=== PATIENT | female | born 1940 | race Caucasian/White ===

== ENCOUNTER 2016-05-27 13:46 | Inpatient (IN) ==
--- NOTE | 2016-05-27 13:58 | Emergency Department Note ---
Disposition Clinical Impression: CHF exacerbation, Biliary sludge Disposition: Admitted As Inpatient Condition: Good SOB HPI - General Chief Complaint: ED Shortness of Breath/Dyspnea Stated Complaint: DB Time Seen by Provider: 05/27/16 13:50 Source: patient, EMS Mode of arrival: EMS Limitations: no limitations Nursing Notes Reviewed: Yes Vital Signs Reviewed: Yes - History of Present Illness 76-year-old female presents to the ER via EMS with a chief complaint of shortness of breath and chest pain. Patient reports that she has felt short of breath today. She states that she has CHF and "causing it. She denies any recent weight gain or noncompliance with her medications. She reports to me that she had chest pain earlier today but its gone now. She states she is on home oxygen only at night. She reports a previous history of smoking but quit a few months ago. She is unable to tell me her medical problems. There is no one here with her to validate that. She denies any recent illnesses, fevers, vomiting, diarrhea. No other complaints. Pt Subjective Complaint: shortness of breath Onset (ago): hour(s) Severity: moderate Consistency/Duration: constant Improves with: nothing Worsens with: nothing Known history of: congestive heart failure Associated symptoms: Reports: chest pain. Denies: fever, cough, lower extremity pain, nausea/vomiting Treatment prior to arrival: oxygen Cough present: No Sputum production: No Sputum Amount: None - Related Data Home oxygen amount: other (5L at night) Home Medications Medication Instructions Recorded Confirmed Amiodarone [Cordarone] 200 mg PO QAM 05/27/16 05/27/16 Aspirin Enteric Coated [Aspirin EC] 81 mg PO DAILY 05/27/16 05/27/16 Atorvastatin [Lipitor] 40 mg PO HS 05/27/16 05/27/16 Furosemide [Lasix] 20 mg PO DAILY 05/27/16 05/27/16 GlipiZIDE [Glucotrol] 5 mg PO QAM 05/27/16 05/27/16 Lisinopril 2.5 mg PO DAILY 05/27/16 05/27/16 Metformin HCl [Glucophage] 1,500 mg PO QAM 05/27/16 05/27/16 Metoprolol XL (24 HR) Succ [Toprol 25 mg PO DAILY 05/27/16 05/27/16 XL] Potassium Chloride [Klor-Con 10] 10 meq PO BID 05/27/16 05/27/16 Tramadol HCl [Ultram] 50 mg PO Q6H PRN 05/27/16 05/27/16 Warfarin [Coumadin] 4 mg PO 1800 05/27/16 05/27/16 Allergies Allergy/AdvReac Type Severity Reaction Status Date / Time Penicillins Allergy Rash Verified 05/27/16 13:49 All systems ED: reviewed and negative except as stated. Constitutional: Denies: fever Cardiovascular: Reports: chest pain. Denies: palpitations Respiratory: Reports: dyspnea. Denies: cough, wheezes Gastrointestinal: Denies: abdominal pain, nausea, vomiting, diarrhea Musculoskeletal: Denies: back pain, neck pain Past Medical History - Past Medical History Attestation: Yes The following information was validated with the patient. Source: patient Physical Exam - General Limitations: no limitations General appearance: alert, in no apparent distress - Head Head exam: atraumatic, normocephalic, normal inspection - Eye Eye exam: Present: normal appearance, EOMI - ENT ENT exam: normal exam - Neck Neck exam: Present: normal inspection - Chest Chest inspection: Present: normal inspection, symmetric chest wall rise - Respiratory Respiratory exam: Present: accessory muscle use, other (Diminished breath sounds bilaterally). Absent: respiratory distress, wheezes, prolonged expiratory phase - Cardiovascular Cardiovascular exam: Present: regular rate, normal rhythm, normal heart sounds, systolic murmur (2/6) - Abdominal Exam Abdominal exam: Present: soft, Non-Tender. Absent: tenderness - Expanded Lower Extremity Exam Hip/Pelvis exam: Present: normal inspection, full ROM Upper leg exam: Present: normal inspection, full ROM Knee exam: Present: normal inspection, full ROM Lower leg exam: Present: normal inspection, full ROM, swelling (BLE non-pitting edema with superficial skin changes likely 2/2 venous insufficiency.) Ankle exam: Present: normal inspection, full ROM Foot/toe exam: Present: normal inspection, full ROM - Neurological Exam Neurological exam: Present: alert - Psychiatric Psychiatric exam: Present: normal affect, normal mood - Skin Skin exam: Present: warm, dry, intact, normal color Course Course Narrative: Patient seen and examined. Vital signs reviewed. Reports that she was hypoxic upon presentation by EMS in the 80s. Corrected when placed on 2 L nasal cannula. Plan for patient is EKG, chest x-ray as well as basic labs including troponin and BNP. I reviewed medical records which does not show any medical problems or medications in our system. The paperwork sent with the patient reveals that she is on Coumadin, metoprolol, amiodarone, furosemide, atorvastatin, escitalopram. - Reevaluation(s) Reevaluation #1: Chest x-ray shows pulmonary vascular congestion with a right-sided effusion. Patient given 40 of Lasix here IV. BNP over 1999. We will admit to the hospital for CHF exacerbation. Vital Signs Temperature 98.7 F 05/27/16 13:50 Pulse Rate 87 05/27/16 13:50 Respiratory Rate 22 05/27/16 13:50 Blood Pressure 149/79 05/27/16 13:50 O2 Sat by Pulse Oximetry 85 L 05/27/16 13:50 Temperature 98.7 F 05/27/16 13:50 Pulse Rate 79 05/27/16 16:28 Respiratory Rate 18 05/27/16 17:13 Blood Pressure 144/85 05/27/16 17:13 O2 Sat by Pulse Oximetry 95 05/27/16 16:28 Oxygen Delivery Oxygen Delivery Nasal Cannula Shortness of Breath/Dyspnea - MDM Narrative Medical decision making narrative: 76-year-old female presents to the ER via EMS due to shortness of breath. Her EKG here shows sinus rhythm with a right bundle branch block. Troponin is 0.03. Her chest x-ray is concerning for pulmonary vascular congestion with a right sided effusion. Her BNP is over 2000. Her d-dimer is within normal limits for age adjustment. Patient given an aspirin and 40 of Lasix. Patient will be admitted to the hospitalist service for further management. - Lab Data Result diagrams: 05/27/16 14:22 05/27/16 14:22 Lab Results 05/27/16 05/27/16 05/27/16 Range/Units 14:22 14:22 14:22 WBC 8.5 (4.3-11.1) K/mcL RBC 3.74 L (3.82-4.97) M/mcL Hgb 11.0 L (11.5-15.4) g/dL Hct 36.8 (35.3-44.9) % MCV 98.4 (83.0-100.0) fL MCH 29.4 (28.0-33.3) pg MCHC 29.9 L (31.6-35.5) g/dL RDW 19.1 H (11.5-14.5) % Plt Count 266 (140-400) K/mcL MPV 8.7 L (9.4-12.4) fL Immature Gran % 0.4 (0-4) % Seg Neutrophils % 61.4 % Lymphocytes % 23.6 % Monocytes % 8.1 % Eosinophils % 6.1 % Basophils % 0.4 % Neutrophils # 5.2 (1.6-8.9) K/mcL Lymphocytes # 2.0 (0.6-4.6) K/mcL Monocytes # 0.7 (0.0-1.3) K/mcL Eosinophils # 0.5 (0.0-0.6) K/mcL Basophils # 0.0 (0.0-0.2) K/mcL PT (9.4-12.1) Seconds INR APTT (26.0-36.0) Seconds D-Dimer (0-500) ng/mLFEU Sodium 141 (136-145) mEq/L Potassium 5.1 H (3.5-4.5) mEq/L Chloride 108 (98-109) mEq/L Carbon Dioxide 25 (19-29) mEq/L BUN 42 H (7-20) mg/dL Creatinine 1.12 H (0.57-1.11) mg/dL Est GFR ( Amer) 58 L (> 60) Est GFR (Non-Af Amer) 48 L (> 60) BUN/Creatinine Ratio 38 H (6-26) Glucose 104 H (70-99) mg/dL Calculated Osmolality 303 H (280-300) Calcium 9.1 (8.6-10.8) mg/dL Troponin I 0.03 (0-0.03) ng/mL B-Natriuretic Peptide (0-100) pg/mL 05/27/16 05/27/16 05/27/16 Range/Units 14:22 14:22 14:22 WBC (4.3-11.1) K/mcL RBC (3.82-4.97) M/mcL Hgb (11.5-15.4) g/dL Hct (35.3-44.9) % MCV (83.0-100.0) fL MCH (28.0-33.3) pg MCHC (31.6-35.5) g/dL RDW (11.5-14.5) % Plt Count (140-400) K/mcL MPV (9.4-12.4) fL Immature Gran % (0-4) % Seg Neutrophils % % Lymphocytes % % Monocytes % % Eosinophils % % Basophils % % Neutrophils # (1.6-8.9) K/mcL Lymphocytes # (0.6-4.6) K/mcL Monocytes # (0.0-1.3) K/mcL Eosinophils # (0.0-0.6) K/mcL Basophils # (0.0-0.2) K/mcL PT 47.8 H* (9.4-12.1) Seconds INR 4.2 APTT 49.8 H (26.0-36.0) Seconds D-Dimer 694 H (0-500) ng/mLFEU Sodium (136-145) mEq/L Potassium (3.5-4.5) mEq/L Chloride (98-109) mEq/L Carbon Dioxide (19-29) mEq/L BUN (7-20) mg/dL Creatinine (0.57-1.11) mg/dL Est GFR ( Amer) (> 60) Est GFR (Non-Af Amer) (> 60) BUN/Creatinine Ratio (6-26) Glucose (70-99) mg/dL Calculated Osmolality (280-300) Calcium (8.6-10.8) mg/dL Troponin I (0-0.03) ng/mL B-Natriuretic Peptide 2026 H (0-100) pg/mL - Radiology Data Radiology results reviewed: Yes I reviewed the patient's radiology results. Chest X-Ray 05/27/16 13:54 IMPRESSION: Cardiomegaly with central vascular congestion and probable early perihilar congestive changes. Mild dependent right basilar opacification and effusion. D/ / Benito Trevino MD / Benito Trevino MD Interpreting Provider: Benito Trevino MD - EKG Data EKG attestation: Yes I reviewed and interpreted this EKG. EKG results narrative: EKG demonstrates normal sinus rhythm with a right bundle-branch block with a rate of 89 bpm. Left axis deviation. PA interval 155 QRS duration 155 QTc 437 T wave inversions in lead V1, V2 secondary to bundle-branch block. No ST elevations or depressions. No previous EKG for comparison. EKG shows normal: Reports: sinus rhythm Rate: Reports: normal Rhythm: Reports: NSR, other (RBBB) Crawford/QRS: Reports: RBBB T wave inversions noted in: Reports: v1, v2 When compared to previous EKG there are: previous EKG unavailable Interpretation: Reports: other (NSR with RBBB) S.B.Laureano - Cindy Situation: Demographics, MOA Background: Presenting Complaint, Relevant PMH, Meds, & Allergies Assessment: Vital Signs, Course and respsone to treatment, Exam Concerns, Patient/Family Expectation, Pertinant Lab Results, Outstanding Labs Recommendation: Barrier(s) to disposition, Recommendation based on pending studies, treatments, or consults STravis Report Given to: Dr. Lizeth White Repor Time: 14:57 (Requests CT abd pelv) Attestation Statement - Attestation Attestation: I examined this patient and my medical decision-making was reviewed with the CHILD CARE LEAD TEACHER/PA/Advanced Practice Nurse/Resident Physician. I agree with the documented findings, disposition and treatment plan as described except to the extent set forth below. Patient to the emergency department with a chief complaint hypoxia. Patient sent in by her home health aid. Pulse ox was in the 80s on room air. Patient does not wear home oxygen. She states she had some chest pain earlier but feels fine now. On exam she is awake and alert. She is satting 92% on 4 L. Lungs diminished in the bases. Plan. The patient hypoxic on room air. She is tolerating oxygen at 4 L. Patient with cardiomegaly and vascular congestion on her chest x-ray. Lasix given. Will admit to medicine. 30 minutes of critical care exclusive of separately procedures. Patient admitted. They wanted a CT scan abdomen. It shows sludge in gallbladder. Hospitalist requesting ultrasound. Patient is nothing by mouth and admitted to medicine. Ultrasound pending at this time.
[2016-05-27] MEDS ORDERED: Aspirin 81 MG TAB.CHEW PO ONE (14:07)
[2016-05-27 14:33] LABS: Basophils % 0.4 %; Eosinophils # 0.5 K/mcL (0.0-0.6); Eosinophils % 6.1 %; Hematocrit 36.8 % (35.3-44.9); Immature Granulocytes % 0.4 % (0-4); Lymphocytes % 23.6 %; Mean Corpuscular HGB Conc 29.9 g/dL (31.6-35.5); Mean Corpuscular Hemoglobin 29.4 pg (28.0-33.3); Mean Corpuscular Volume 98.4 fL (83.0-100.0); Mean Platelet Volume 8.7 fL (9.4-12.4); Monocytes # 0.7 K/mcL (0.0-1.3); Monocytes % 8.1 %; Neutrophils # 5.2 K/mcL (1.6-8.9); Platelet Count 266 K/mcL (140-400); Red Blood Count 3.74 M/mcL (3.82-4.97); Red Cell Distribution Width 19.1 % (11.5-14.5); Segmented Neutrophils % 61.4 %
[2016-05-27] MEDS ORDERED: Furosemide 40 MG/4 ML VIAL IV ONE (14:39)
[2016-05-27 14:40] LABS: INR 4.2
[2016-05-27 14:43] LABS: Activated Partial Thrombo Time 49.8 Seconds (26.0-36.0)
[2016-05-27 14:45] LABS: Calcium 9.1 mg/dL (8.6-10.8); Potassium 5.1 mEq/L (3.5-4.5)
[2016-05-27 14:48] LABS: Prothrombin Time 47.8 Seconds (9.4-12.1)
[2016-05-27] MEDS ORDERED: Ondansetron 4 MG/2 ML VIAL IVP PRN (17:50)
[2016-05-27] MEDS ORDERED: Naloxone 0.4 MG/ML INJ IVP PRN (17:50)
[2016-05-27] MEDS ORDERED: Acetaminophen 325 MG TABLET PO PRN (17:50)
--- NOTE | 2016-05-27 17:56 | Internal Med History&Physical ---
Date of Encounter: 05/27/16 Time of Encounter: 17:54 Assessment and Plan (1) Biliary sludge Current visit: Yes Status: Acute Patient noted to have right upper quadrant abdominal pain, CT abdomen/pelvis shows gallbladder sludge. To rule out acute cholecystitis. Check hepatic function panel and obtain ultrasound gallbladder to check for gallstones. Keep nothing by mouth for now. (2) Acute CHF Current visit: Yes Status: Acute Patient is noted to have elevated BNP, pedal edema and hypoxia. Avoid IV hydration and start diuresis with IV Lasix. Fluid restriction, daily weights and strict urine output monitoring. Continue beta jens. Telemetry monitoring with serial troponin trending. Check 2-D echocardiogram. Obtain medical records from recent hospitalization from [place], [place]. Physical therapy evaluation. CODE STATUS discussed with patient and family, patient confirms DNR/DNI, medical power of instructional design specialist's and her daughter and son-in-law. Qualifiers: Congestive heart failure type: unspecified congestive heart failure type Qualified Code(s): I50.9 - Heart failure, unspecified (3) Acute on chronic respiratory failure with hypoxemia Current visit: Yes Status: Acute Noted to be on 2 L/m oxygen via nasal cannula at home. Oxygen requirements are currently higher due to underlying CHF exacerbation. Treat underlying condition and monitor closely. (4) Acute encephalopathy Current visit: Yes Status: Acute Improving. Likely related to metabolic encephalopathy due to hypoxia and underlying medical conditions. Supportive care and fall precautions. (5) Diabetes mellitus Current visit: Yes Status: Chronic Accu-Chek blood glucose monitoring with sliding scale insulin as needed. Qualifiers: Diabetes mellitus type: type 2 Diabetes mellitus complication status: with unspecified complications Diabetes mellitus hydrographer insulin use: without hydrographer use Qualified Code(s): E11.8 - Type 2 diabetes mellitus with unspecified complications (6) Atrial fibrillation Current visit: Yes Status: Chronic Currently rate controlled. Continue beta jens. Noted to be on Coumadin for long-term anticoagulation, will hold for now due to elevated INR. Qualifiers: Atrial fibrillation type: chronic Qualified Code(s): I48.2 - Chronic atrial fibrillation (7) Osteoarthritis Current visit: Yes Status: Chronic Qualifiers: Osteoarthritis location: multiple joints Osteoarthritis type: primary Qualified Code(s): M15.0 - Primary generalized (osteo)arthritis Internal Medicine - H&P: HPI Chief complaint: Dizziness, SOB, confusion Admitted From: Emergency Dept Plans for Post Hospital Care: Transfer Jail Facility History of present illness: Ms. Black is a 76 year old female with history of CHF and atrial fibrillation was brought in for evaluation of confusion and lethargy. Patient has home health services including physical therapy and has been working with physical therapy this morning when she started getting weak and not answering appropriately. She is currently alert and oriented and history is also supplemented by her daughter and son-in-law at bedside. Patient has recently been hospitalized in [place], [place] with similar complaints and has been diagnosed with congestive heart failure and was discharged to rehabilitation facility from where she came home on home health services. She reports right-sided lower rib pain and right upper abdominal pain just below her rib cage, not associated with nausea or vomiting or diarrhea. Her pain is worsened with inspiration. No history of gallbladder disease or cholecystectomy. She does not report chest pain today although she does have shortness of breath and some leg swelling, which has not gotten any worse. She is noted to be on home oxygen. No cough, fever, chills or palpitations. Past Med Surg Social Fam HX - Past Medical History Medical history: atrial fibrillation, CHF, diabetes - Past Surgical History Surgical History: - Social History Smoking Status: Former smoker (quit 2 months ago) Alcohol use: none Drug use: none Occupational status: retired Current living situation: Home, With Family Activity Level: Uses cane/walker Recent Out of Country Travel Within the Last 8 Weeks: No Exposure or Possible Exposure to Illness During Travel: No - Additional Family History Additional family history: reviewed and found non-contributory Internal Medicine - H&P: Meds Amiodarone [Cordarone] 200 mg PO [facility] 05/27/16 [History] Aspirin Enteric Coated [Aspirin EC] 81 mg PO DAILY 05/27/16 [History] Atorvastatin [Lipitor] 40 mg PO HS 05/27/16 [History] Furosemide [Lasix] 20 mg PO DAILY 05/27/16 [History] GlipiZIDE [Glucotrol] 5 mg PO QAM 05/27/16 [History] Lisinopril 2.5 mg PO DAILY 05/27/16 [History] Metformin HCl [Glucophage] 1,500 mg PO QA 05/27/16 [History] Metoprolol XL (24 HR) Succ [Toprol XL] 25 mg PO DAILY 05/27/16 [History] Potassium Chloride [Klor-Con 10] 10 meq PO BID 05/27/16 [History] Tramadol HCl [Ultram] 50 mg PO Q6H PRN 05/27/16 [History] Warfarin [Coumadin] 4 mg PO 1800 05/27/16 [History] Allergies Penicillins Allergy (Verified 05/27/16 13:49) Rash All Systems PM: A 10-system review of systems was performed and is negative for pertinent findings except as documented above in the HPI. - Constitutional Constitutional: fatigue, lethargy, weakness - EENT Eyes: no change in vision, no discharge, no pain, no photophobia Ears: no ear discharge, no ear pain, no tinnitus Nose, mouth and throat: no dysphagia, no nasal discharge, no neck pain, no sore throat - Cardiovascular Cardiovascular ROS IM: dyspnea on exertion, edema - Respiratory Respiratory: dyspnea on exertion - Gastrointestinal Gastrointestinal: abdominal pain, no diarrhea, no hematemesis, no hematochezia, no melena, no nausea, no vomiting - Genitourinary Genitourinary: no change in urinary stream, no dysuria, no flank pain, no hematuria - Musculoskeletal Musculoskeletal ROS IM: no numbness, no tingling - Integumentary Integumentary IM: no rash, no unusual bruising - Neurological Neurological ROS: no confusion, no convulsions, no focal weakness, no numbness, no tingling, no tremor(s) - Hematologic/Lymphatic Hematologic/Lymphatic: no easy bruising - Constitutional Vitals: Temp Pulse Resp BP Pulse Ox 98.7 F 79 18 144/85 95 05/27/16 13:50 05/27/16 16:28 05/27/16 17:13 05/27/16 17:13 05/27/16 16:28 General appearance: Present: A&O X 3, answers questions appropriately - Head Head exam: Present: atraumatic, normocephalic - Neck Neck exam general surgery: Present: supple, trachea midline. Absent: lymphadenopathy - Respiratory Respiratory exam: Present: rales (bibasal crackles+). Absent: accessory muscle use, rhonchi, wheezes - Cardiovascular Cardiovascular exam: Present: irregular rhythm, +S1, +S2. Absent: diastolic murmur, gallop, rubs, systolic murmur - GI/Abdominal GI/Abdominal exam: Present: normal bowel sounds, soft (mild tenderness in RUQ), no peritoneal signs. Absent: distended, tenderness - Extremities Exam Extremities exam: Present: full ROM, pedal edema, warm, radial pulses palpable and symetrical. Absent: calf tenderness, cyanotic - Neurological Exam Neurological exam: Present: CN II-XII intact, oriented X3, no focal deficits. Absent: pronater drift, facial droop, speech deficit - Skin Skin exam: Present: dry, intact Internal Med - H&P Results - Labs CBC & Chem 7: 05/28/16 01:19 05/30/16 00:53
[2016-05-27 18:05] LABS: Albumin 3.2 g/dL (3.5-5.0); Albumin/Globulin Ratio 0.8 (1.1-2.2); Bilirubin,Direct 0.2 mg/dL (0.0-0.5); Bilirubin,Indirect 0.1 mg/dL (0.0-1.2); Bilirubin,Total 0.3 mg/dL (0.2-1.2); Globulin 3.8 g/dL (2.4-3.5)
[2016-05-28] MEDS: *HR* OxyCODONE Immed Rel 5 MG TABLET PO PRN ×4 (00:18→23:39)
[2016-05-28] MEDS ORDERED: *HR* Dextrose 50 % in Water (Syg) 50 ML SYRINGE ONE (00:26)
[2016-05-28] MEDS: *HR* Dextrose 50 % in Water (Syg) 50 ML SYRINGE IVP PRN ×2 (00:30→05:52)
[2016-05-28] MEDS ORDERED: D5% in Water 1,000 ML IV PRN (01:01)
[2016-05-28] MEDS ORDERED: Dextrose Gel 15 GM PO PRN ×2 (01:01)
[2016-05-28 01:43] LABS: Basophils # 0.1 K/mcL (0.0-0.2); Basophils % 0.6 %; Eosinophils # 0.6 K/mcL (0.0-0.6); Eosinophils % 6.6 %; Hematocrit 34.9 % (35.3-44.9); Hemoglobin 10.3 g/dL (11.5-15.4); Immature Granulocytes % 0.4 % (0-4); Lymphocytes # 2.3 K/mcL (0.6-4.6); Lymphocytes % 27.7 %; Mean Corpuscular HGB Conc 29.5 g/dL (31.6-35.5); Mean Corpuscular Hemoglobin 28.9 pg (28.0-33.3); Mean Platelet Volume 9.1 fL (9.4-12.4); Monocytes # 0.7 K/mcL (0.0-1.3); Monocytes % 8.1 %; Neutrophils # 4.8 K/mcL (1.6-8.9); Platelet Count 255 K/mcL (140-400); Red Blood Count 3.56 M/mcL (3.82-4.97); Red Cell Distribution Width 18.8 % (11.5-14.5); Segmented Neutrophils % 56.6 %
[2016-05-28 01:57] LABS: Calcium 8.9 mg/dL (8.6-10.8); Chol/HDL Ratio 3.2 (0-4.9); Magnesium 1.6 mg/dL (1.6-2.6); Potassium 4.5 mEq/L (3.5-4.5)
[2016-05-28] MEDS: Metoprolol XL (24 HR) Succ 25 MG TAB.ER.24H PO SCH (10:50)
[2016-05-28] MEDS: Furosemide 20 MG/2 ML VIAL IVP SCH ×2 (10:50→17:13)
[2016-05-28] MEDS: Pantoprazole 40 MG VIAL IVP SCH (10:51)
[2016-05-28] MEDS: *HR* Amiodarone 200 MG TABLET PO SCH (10:51)
[2016-05-28] MEDS: Aspirin Enteric Coated 81 MG Tablet PO SCH (10:51)
--- NOTE | 2016-05-28 13:50 | ECHO - Doppler Report ---
Echocardiogram Name: Shanda Black Date of Study: 05/28/2016 Date: 1940 Ht: 61.0 in Medical Record#: [id number] Age: 76 Wt: 206.0 lb Gender: Female BSA: 1.91 Order #: [id number] Location: [facility] Room #: [id number] Reading Physician: Carlton Kessler DO, FACC, RYAN QUAN Reproductive Surgeon: ALEXA JimenezT, RD Ordering Physician: Kathy Yi MD Primary Physician: None Indications: Shortness of breath Impressions: LVEF 60%. Normal LV chamber size and function. Mild concentric left ventricular hypertrophy. Mild left ventricular diastolic dysfunction. Atypical septal motion consistent with bundle branch block. Normal right ventricular structure and function. Severely dilated left atrium. Severely calcified aortic valve leaflets. Severe mitral annular calcification and severely thickened MV leaflets with reduced mobility. Mild mitral regurgitation. Moderate aortic stenosis. Mean gradient 29 mmHg. Peak velocity 3.48 m/s. Severe mitral stenosis. Mean gradient 11 mmHg (HR 80 bpm). Mild tricuspid regurgitation. Moderate pulmonary hypertension. Estimated RVSP is 52 mmHg. Left Ventricular Wall Motion: Rest Echo Findings All wall segments showed normal motion. Findings: Study Quality * Technically adequate exam. ECG Findings * Sinus rhythm with BBB. Left Ventricle * LVEF 60%. * Normal LV chamber size and function. * Mild concentric left ventricular hypertrophy. * Mild left ventricular diastolic dysfunction. * Atypical septal motion consistent with bundle branch block. Right Ventricle * Grossly normal right ventricular structure and function. Left Atrium * Severely dilated left atrium. Right Atrium * Mildly dilated right atrium. Interatrial Septum * Interatrial septum not well evaluated. Aortic Valve * Severely calcified aortic valve leaflets. * Trace aortic regurgitation. * Moderate aortic stenosis. Mean gradient 29 mmHg. Peak velocity 3.48 m/s. Mitral Valve * Severe mitral annular calcification and severely thickened MV leaflets with reduced mobility. * Mild mitral regurgitation. * Severe mitral stenosis. Mean gradient 11 mmHg (HR 80 bpm). Tricuspid Valve * Normal tricuspid valve structure. * Mild tricuspid regurgitation. * Moderate pulmonary hypertension. * Estimated RVSP is 52 mmHg. * Estimated RA pressure is 5 mmHg. Pulmonic Valve * Normal pulmonic valve structure and function. * Trace pulmonic regurgitation. Aorta * Normally sized aortic root. Pericardium * The pericardium appears normal. IVC * The IVC is not well evaluated. Pulmonary Artery * Normal visualized portions of the main pulmonary artery. History Diabetes Congestive Heart Failure Measurements: BP: 130/ 72 2D Normal Values IVSd: 1.10 cm 0.6 - 1.0 cm LVIDd: 5.20 cm 3.7 - 5.6 cm LVPWd: 1.10 cm 0.6 - 1.1 cm LVIDs: 3.60 cm 1.5 - 3.6 cm AO: 2.80 cm < 4.0 cm LA: 5.00 cm 2.0 - 4.0cm %FS: 30.80 cm >25 % LVOT Diam: 1.90 cm LA volume: 65 Mitral Valve Peak Velocity 2.19 m/sec Mean Velocity:1.57 m/sec Peak Grad:19.00 mmHg Mean Grad:11.00 mmHg Pressure Time:121.00 msec Dec Time:236.00 msec Valve Area:.95 cm2 Peak E:1.84 m/sec Peak A:2.07 m/sec E/A Ratio:0.9 Peak E' Lat Ramo:5.07 cm/s Peak E' Med Ramo:4 cm/s E/E' Lat Ratio:36.3 E/E' Med Ratio:46 LVOT Peak Ramo:.88 m/sec Mean Ramo:.61 m/sec Peak Grad:3.00 mmHg Mean Grad:2.00 mmHg Aortic Valve Peak Ramo:3.48 m/sec Mean Ramo:2.53 m/sec Peak Grad:48.00 mmHg Mean Grad:29.00 mmHg Valve Area:.85 cm2 AI pressure Half-time: 368.00 msec Tricuspid Valve TV Regurg Peak Grad: 47.00mmHg TV Regurg Peak Ramo: 3.41m/sec Updated by Carlton Kessler DO, FACReyna, AVELINA, RYAN on 05/28/2016 1:44:32 PM electronically signed on 05/28/2016 1:45:02 PM with status of Final Wall Motion Govea: 1=Normal, 2=Hypokinesis, 3=Akinesis, 4=Dyskinesis, 5=Aneurysmal, 6=Hyperkinetic, X=Not Visualized (Blank)=Missing
[2016-05-28 14:23] LABS: Bilirubin,Urine Negative (Negative); Blood,Urine Small (Negative); Clarity,Urine Clear (Clear); Color,Urine Yellow (Yellow); Glucose,Urine (UA) Normal (Normal); Ketones,Urine Negative (Negative); Leukocyte Esterase,Urine Negative (Negative); Nitrite,Urine Negative (Negative); Protein,Urine Negative (Neg-Trace); Urobilinogen,Urine Normal (Normal)
[2016-05-28 14:27] LABS: Bacteria,Urine None Seen per hpf (None-Few); Hyaline Casts,Urine None Seen per lpf (None-Few); RBC,Urine 0-3 per hpf (0-3); Squamous Epithelial Cell,Urine Few per lpf (None-Few); WBC,Urine 0-3 per hpf (0-3)
[2016-05-28 14:55] LABS: INR 4.1
[2016-05-28 15:00] LABS: Prothrombin Time 46.2 Seconds (9.4-12.1)
--- NOTE | 2016-05-28 15:36 | Internal Med Progress Note ---
Date of Encounter: 05/28/16 Time of Encounter: 12:00 - Assessment and plan (1) Acute CHF Current Visit: Yes Status: Acute Assessment and plan: improving clinically. Continue IV Lasix while monitoring urine output, weights and serum creatinine. Fluid restriction. Cardiac diet. Continue beta jens. Supportive care and supplemental oxygen. 2-D echocardiogram reviewed , shows ejection fraction 60%, mild left ventricular diastolic dysfunction, severe mitral stenosis, moderate aortic stenosis and pulmonary hypertension. We will try to obtain previous records from the hospital in [place], where this patient was recently hospitalized and has been diagnosed with CHF. Physical therapy evaluation pending. Qualifiers: Congestive heart failure type: diastolic Qualified Code(s): I50.31 - Acute diastolic (congestive) heart failure (2) Acute encephalopathy Current Visit: Yes Status: Resolved Assessment and plan: Likely due to hypoxemia related to valvular heart disease. Currently at baseline mental status. (3) Diabetes mellitus Current Visit: Yes Status: Chronic Assessment and plan: Noted to have episodes of hypoglycemia yesterday. Continue Accu-Chek blood glucose monitoring with sliding scale insulin as needed. Diabetic diet. Check hemoglobin A1c. Qualifiers: Diabetes mellitus type: type 2 Diabetes mellitus complication status: with unspecified complications Diabetes mellitus chcf insulin use: without chcf use Qualified Code(s): E11.8 - Type 2 diabetes mellitus with unspecified complications (4) Atrial fibrillation Current Visit: Yes Status: Chronic Assessment and plan: Try to obtain previous records. Continue beta jens and amiodarone. Currently rate controlled. Noted to be on long-term anticoagulation with Coumadin, currently on hold due to high INR. Telemetry monitoring. Qualifiers: Atrial fibrillation type: chronic Qualified Code(s): I48.2 - Chronic atrial fibrillation (5) Osteoarthritis Current Visit: Yes Status: Chronic Qualifiers: Osteoarthritis location: multiple joints Osteoarthritis type: primary Qualified Code(s): M15.0 - Primary generalized (osteo)arthritis (6) Biliary sludge Current Visit: Yes Status: Acute Assessment and plan: Reviewed gallbladder ultrasound, shows no evidence of gallstones or acute cholecystitis. Patient is able to tolerate oral diet. Does not appear septic. LFTs noted to be WNL. (7) Mitral stenosis Current Visit: Yes Status: Chronic Qualifiers: Cardiac valve disease etiology: etiology unspecified Qualified Code(s): I05.0 - Rheumatic mitral stenosis - Subjective Interval history: Feels better; no chest pain but still has some right-sided pain below ribs; tolerates oral diet; improved dyspnea and confusion; - Constitutional Vitals: Temp Pulse Resp BP Pulse Ox 98.2 F 84 20 122/91 99 05/28/16 12:53 05/28/16 12:53 05/28/16 12:53 05/28/16 12:53 05/28/16 12:53 General appearance: Present: A&O X 2, answers questions appropriately - Respiratory Respiratory exam: Present: rales (faint crackles B/L bases). Absent: accessory muscle use, rhonchi, wheezes - Cardiovascular Cardiovascular exam: Present: RRR, +S1, +S2, systolic murmur (3/6 left lower parasternal area). Absent: diastolic murmur, gallop, rubs - GI/Abdominal GI/Abdominal exam: Present: normal bowel sounds, soft, no peritoneal signs. Absent: distended, tenderness - Extremities Exam Extremities exam: Present: full ROM, pedal edema (improving), warm, radial pulses palpable and symetrical. Absent: calf tenderness, cyanotic Internal Medicine: Result - Labs CBC & Chem 7: 05/28/16 01:19 05/28/16 01:19 Labs: Short CBC 05/28/16 Range/Units 01:19 WBC 8.4 (4.3-11.1) K/mcL Hgb 10.3 L (11.5-15.4) g/dL Hct 34.9 L (35.3-44.9) % Plt Count 255 (140-400) K/mcL Neutrophils # 4.8 (1.6-8.9) K/mcL BMP 05/28/16 01:19 Sodium 144 Potassium 4.5 Chloride 108 Carbon Dioxide 28 BUN 40 H Creatinine 1.12 H Glucose 77 Calcium 8.9 Cardiac Enzymes 05/27/16 05/28/16 05/28/16 Range/Units 20:20 01:19 05:51 Troponin I 0.02 0.03 0.03 (0-0.03) ng/mL Urine 05/28/16 Range/Units 14:10 Urine Color Yellow (Yellow) Urine Clarity Clear (Clear) Urine pH 6.0 (5.0-8.0) pH Units Ur Specific [place] 1.010 (1.010-1.025) Urine Protein Negative (Neg-Trace) mg/dL Urine Glucose (UA) Normal (Normal) mg/dL - ABG Interpretation ABG results: PT/INR, D-dimer PT 46.2 Seconds (9.4-12.1) H* 05/28/16 14:38 D-Dimer 694 ng/mLFEU (0-500) H 05/27/16 14:22 Consult Discharge Plan - Plan Referrals: NO,PCP [Primary Care Provider] -
--- NOTE | 2016-05-28 17:10 | Electrocardiograph Report ---
[place] [id number] Test Date: 2016-05-27 Pat Name: Shanda Black Department: 104 Room: [id number] Gender: F [employer] Tender: : 1940 Requested By: Hossein Alarcon Order Number: [id number] Reading MD: Marifer Petty Measurements Intervals [place] Rate: 89 P: -2 [place]: 155 QRS: -56 QRSD: 155 T: 10 QT: 391 QTc: 437 Interpretive Statements SINUS RHYTHM POSSIBLE LEFT ATRIAL ENLARGEMENT MARKED LEFT AXIS DEVIATION RIGHT BUNDLE BRANCH BLOCK Electronically Signed On 05-28-2016 17:08:56 EST by Marifer Petty
[2016-05-28] MEDS: Insulin LISPRO 300 UNITS/3 ML VIAL SQ SCH ×2 (17:16→19:57)
[2016-05-29] MEDS ORDERED: clonazePAM 0.5 MG TABLET PO PRN (03:18)
[2016-05-29 06:04] LABS: INR 3.1; Prothrombin Time 34.8 Seconds (9.4-12.1)
[2016-05-29 06:15] LABS: Calcium 8.7 mg/dL (8.6-10.8); Potassium 4.1 mEq/L (3.5-4.5)
[2016-05-29] MEDS: *HR* OxyCODONE Immed Rel 5 MG TABLET PO PRN (06:24)
[2016-05-29] MEDS: Aspirin Enteric Coated 81 MG Tablet PO SCH (08:26)
[2016-05-29] MEDS: Pantoprazole 40 MG VIAL IVP SCH (08:26)
[2016-05-29] MEDS: Insulin LISPRO 300 UNITS/3 ML VIAL SQ SCH ×4 (08:26→19:58)
[2016-05-29] MEDS: *HR* Amiodarone 200 MG TABLET PO SCH (08:26)
[2016-05-29] MEDS: Metoprolol XL (24 HR) Succ 25 MG TAB.ER.24H PO SCH (08:26)
[2016-05-29] MEDS: Furosemide 20 MG/2 ML VIAL IVP SCH ×2 (08:26→19:47)
[2016-05-29] MEDS ORDERED: Furosemide 20 MG/2 ML VIAL IVP ONE (10:28)
[2016-05-29] MEDS: *HR* Morphine 2 MG/ML SYRINGE IVP PRN ×2 (10:33→19:47)
[2016-05-29] MEDS: Sennosides/Docusate Sodium TABLET PO SCH ×2 (10:34→19:47)
--- NOTE | 2016-05-29 10:39 | Internal Med Progress Note ---
Date of Encounter: 05/29/16 Time of Encounter: 10:38 - Assessment and plan (1) Chest pain Current Visit: Yes Status: Acute Assessment and plan: Right-sided chest pain likely related to atelectasis and right-sided pleural effusion. Will obtain CT chest to further evaluate. Continue treatment for acute CHF. Qualifiers: Chest pain type: pleurodynia Qualified Code(s): R07.81 - Pleurodynia (2) Acute CHF Current Visit: Yes Status: Acute Assessment and plan: Related to underlying valvular heart disease including severe mitral stenosis and moderate aortic stenosis. Urine output not significant but noted to have 2 kg weight loss since admission. Will increase IV Lasix to 40 mg twice daily while monitoring urine output, weights and serum creatinine. Fluid restriction. Cardiac diet. Continue beta jens. Supportive care and supplemental oxygen. Noted to require 5 L/m supplemental oxygen via nasal cannula. We will consider cardiology consult if continues to worsen. Goals of care and CODE STATUS clarified with patient and family at the time of admission , patient wishes for DNR/DNI with no aggressive management. Pending records of previous workup from outside facility. We will obtain CT chest without contrast to evaluate for further etiology for right-sided chest pain. Initial chest x-ray reviewed independently, shows mild pulmonary edema more on the right side along with right-sided pleural effusion. Physical therapy evaluation noted, recommend placement in extended care facility. family services manager consulted. Qualifiers: Congestive heart failure type: diastolic Qualified Code(s): I50.31 - Acute diastolic (congestive) heart failure (3) Acute encephalopathy Current Visit: Yes Status: Resolved (4) Diabetes mellitus Current Visit: Yes Status: Chronic Assessment and plan: Blood sugars noted to be improving. Continue Accu-Chek blood glucose monitoring with sliding scale insulin as needed. Diabetic diet. Qualifiers: Diabetes mellitus type: type 2 Diabetes mellitus complication status: with unspecified complications Diabetes mellitus intermediate insulin use: without intermediate use Qualified Code(s): E11.8 - Type 2 diabetes mellitus with unspecified complications (5) Atrial fibrillation Current Visit: Yes Status: Chronic Assessment and plan: Continue beta jens and amiodarone. Currently rate controlled. We will restart Coumadin today as INR is noted to be 3.1. Telemetry monitoring. Qualifiers: Atrial fibrillation type: chronic Qualified Code(s): I48.2 - Chronic atrial fibrillation (6) Osteoarthritis Current Visit: Yes Status: Chronic Qualifiers: Osteoarthritis location: multiple joints Osteoarthritis type: primary Qualified Code(s): M15.0 - Primary generalized (osteo)arthritis (7) Biliary sludge Current Visit: Yes Status: Acute Assessment and plan: Reviewed gallbladder ultrasound, shows no evidence of gallstones or acute cholecystitis. Patient is able to tolerate oral diet. Does not appear septic. LFTs noted to be WNL. (8) Mitral stenosis Current Visit: Yes Status: Chronic Qualifiers: Cardiac valve disease etiology: etiology unspecified Qualified Code(s): I05.0 - Rheumatic mitral stenosis - Subjective Interval history: Noted to be sitting up in bed, in mild distress. Reports not feeling well today and complains of right-sided rib pain and some shortness of breath. No chest pain. No nausea, vomiting. No bowel movement yet. - Constitutional Vitals: Temp Pulse Resp BP Pulse Ox 98.3 F 77 20 135/83 95 05/29/16 07:24 05/29/16 07:24 05/29/16 07:24 05/29/16 07:24 05/29/16 07:24 General appearance: Present: A&O X 2, answers questions appropriately - Head Head exam: Present: atraumatic, normocephalic - Neck Neck exam general surgery: Present: supple, trachea midline. Absent: lymphadenopathy - Respiratory Respiratory exam: Present: decreased breath sounds (At right base), CTAB. Absent: accessory muscle use, rales, rhonchi, wheezes - Cardiovascular Cardiovascular exam: Present: RRR, +S1, +S2. Absent: diastolic murmur, gallop, rubs, systolic murmur - GI/Abdominal GI/Abdominal exam: Present: distended (Slightly distended), normal bowel sounds , soft, no peritoneal signs. Absent: tenderness - Extremities Exam Extremities exam: Present: full ROM, pedal edema, warm, radial pulses palpable and symetrical. Absent: calf tenderness, cyanotic - Neurological Exam Neurological exam: Present: CN II-XII intact, oriented X3, no focal deficits. Absent: pronater drift, facial droop, speech deficit - Skin Skin exam: Present: dry, intact Internal Medicine: Result - Labs CBC & Chem 7: 05/28/16 01:19 05/29/16 05:07 Labs: BMP 05/29/16 05:07 Sodium 141 Potassium 4.1 Chloride 105 Carbon Dioxide 26 BUN 37 H Creatinine 1.09 Glucose 264 H Calcium 8.7 Urine 05/28/16 Range/Units 14:10 Urine Color Yellow (Yellow) Urine Clarity Clear (Clear) Urine pH 6.0 (5.0-8.0) pH Units Ur Specific [place] 1.010 (1.010-1.025) Urine Protein Negative (Neg-Trace) mg/dL Urine Glucose (UA) Normal (Normal) mg/dL - ABG Interpretation ABG results: PT/INR, D-dimer PT 34.8 Seconds (9.4-12.1) H 05/29/16 05:07 D-Dimer 694 ng/mLFEU (0-500) H 05/27/16 14:22 Consult Discharge Plan - Plan Referrals: NO,PCP [Primary Care Provider] -
[2016-05-29] MEDS: *HR* Warfarin 4 MG TABLET PO SCH (17:01)
[2016-05-29] MEDS ORDERED: Cefepime HCl 1,000 MG in D5% in Water (Mini-Bag+) 100 ML IVPB SCH (18:00)
[2016-05-29] MEDS ORDERED: Levofloxacin 500 MG/100 ML 500 MG/100 ML BAG IVPB SCH (18:00)
[2016-05-29] MEDS ORDERED: Azithromycin 500 MG in D5% in Water 250 ML IVPB SCH (20:00)
[2016-05-30] MEDS ORDERED: Albuterol 2.5 MG/3 ML NEBULIZER IH PRN (01:08)
--- NOTE | 2016-05-30 01:13 | Event Note ---
Date of Encounter: 05/30/16 Time of Encounter: 00:30 RAPID RESPONSE Plan the patient's bedside to evaluate acute alteration in mental status with the active right facial droop, generalized weakness, tremulousness and twitching movements. She was visited, interviewed and examined. Patient record reviewed and considered. The patient was found to be acutely(?on chronic) encephalopathic but appropriately responsive to direct questioning. Following commands appropriately. Vital signs stable Alert and verbally responsive. Equal round and reactive to light Extraocular muscle movements intact Cranial nerves II through XII grossly intact Right facial drooping is able to be defeated the with uninhibited smile. No right facial musculature motor impairment found. [employer] strength symmetric. Babinski sign absent. No pronator drift or spatial neglect. Tremulousness of upper extremities with asterixis Respiratory sounds nourished throughout with central rhonchi . Bibasilar crepitance. Normal sinus rhythm Abdomen protuberant, soft, nontender. Bowel sounds active. LE stasis dermatitis Right versus left calf size increase+ tenderness A/P= suspect acute worsening of toxic metabolic encephalopathy with delirium. Element of asterixis suggests a careful review of the liver integrity and renal integrity is warranted. A careful review of previous feeling drugs and potential adverse drug drug interaction will be made. Agents of greatest concern include Benzodiazepines for acute withdrawal from such. Anticonvulsants/antiepileptics, metoclopramide , and some antibiotics. Cefepime has in particular been implicated in causing abnormal NEUROLOGY HOSPITALIST effects. ? Consider possible early secondary Parkinsonian features. Prevalent acute on chronic congestive heart failure is also compatible with this presentation, as is acute hypoxic/hypercapnic respiratory failure. These latter 2 points being of greatest importance at this time. Initially given radiographic findings showing multifocal pulmonary opacities, pleural effusion, interstitial edema and areas of atelectasis. This potential combined cardiopulmonary decompensation and SIRS/sepsis easily would contribute to the toxic metabolic encephalopathic and delirium seen Nursing attending staff concerns of possible acute CVA acute for review for potential TIA/stroke to be pursued further. Orders written include= Cultures 2 blood plus sputum; urine culture routine urinalysis Respiratory infection panel and respiratory virus profile MRSA nasal swab CMP,CBC with differential, TSH, free T4, free T3 Troponin x3, CPK, LDH, prolactin Ammonia level Venous blood gas, lactate B12, folic acid B natruretic peptide CT of head without contrast Pulmonary toilet measures with incentive spirometry, scheduled and as needed aerosol bronchodilator therapy. BiPAP when necessary Lower extremity venous duplex Discontinue iv cefepime and replace with iv meropenem Add iv vancomycin Continue judicious fluid restriction and gentle diuresis Avoidance of over sedation Recommend PT and OT involvement and patient's day goal toward the active mobilization Care plan was reviewed and discussed with patient's attending nursing staff and patient. Questions addressed. Vital Signs Temp Pulse Resp BP Pulse Ox 05/30/16 00:15 98.0 F 81 20 126/95 93 L 05/29/16 19:51 98.2 F 82 18 106/65 96 05/29/16 18:00 98.6 F 05/29/16 17:00 100.1 F H 05/29/16 16:12 100.8 F H 87 17 124/66 93 L 05/29/16 11:57 98.4 F 79 17 126/73 95 05/29/16 11:00 98.4 F 76 20 111/75 96 05/29/16 09:00 95 05/29/16 07:24 98.3 F 77 20 135/83 95 05/29/16 04:05 98.3 F 83 16 121/65 97 Intake and Output 05/29/16 05/29/16 05/30/16 15:59 23:59 07:59 Intake Total 120 / 120 220 / 220 0 / 0 Output Total 1000 / 1000 1700 / 1700 550 / 550 Balance -880 / -880 -1480 / -1480 -550 / -550 Intake: IV Fluids 100 / 100 Maxipime 1,000 MG In 100 / 100 Dextrose 5% (Minibag+) 100 ML 100 ML @ 200 mls/ hr IVPB Q12HR [facility] Rx#: [id number] Oral 120 / 120 120 / 120 0 / 0 Output: Urine 550 / 550 Catheter 1000 / 1000 1700 / 1700 Other: Meal Breakfast Percent of Meal Consumed 100% # Voids 0 Blood Glucose* 182 159 152 BMP 05/29/16 Range/Units 05:07 Sodium 141 (136-145) mEq/L Potassium 4.1 (3.5-4.5) mEq/L Chloride 105 (98-109) mEq/L Carbon Dioxide 26 (19-29) mEq/L BUN 37 H (7-20) mg/dL Creatinine 1.09 (0.57-1.11) mg/dL Glucose 264 H (70-99) mg/dL Calcium 8.7 (8.6-10.8) mg/dL Laboratory Results WBC 8.4 K/mcL (4.3-11.1) 05/28/16 01:19 RBC 3.56 M/mcL (3.82-4.97) L 05/28/16 01:19 Hgb 10.3 g/dL (11.5-15.4) L 05/28/16 01:19 Hct 34.9 % (35.3-44.9) L 05/28/16 01:19 MCV 98.0 fL (83.0-100.0) 05/28/16 01:19 MCH 28.9 pg (28.0-33.3) 05/28/16 01:19 MCHC 29.5 g/dL (31.6-35.5) L 05/28/16 01:19 RDW 18.8 % (11.5-14.5) H 05/28/16 01:19 Plt Count 255 K/mcL (140-400) 05/28/16 01:19 MPV 9.1 fL (9.4-12.4) L 05/28/16 01:19 Immature Gran % 0.4 % (0-4) 05/28/16 01:19 Seg Neutrophils % 56.6 % 05/28/16 01:19 Lymphocytes % 27.7 % 05/28/16 01:19 Monocytes % 8.1 % 05/28/16 01:19 Eosinophils % 6.6 % 05/28/16 01:19 Basophils % 0.6 % 05/28/16 01:19 Neutrophils # 4.8 K/mcL (1.6-8.9) 05/28/16 01:19 Lymphocytes # 2.3 K/mcL (0.6-4.6) 05/28/16 01:19 Monocytes # 0.7 K/mcL (0.0-1.3) 05/28/16 01:19 Eosinophils # 0.6 K/mcL (0.0-0.6) 05/28/16 01:19 Basophils # 0.1 K/mcL (0.0-0.2) 05/28/16 01:19 PT 34.8 Seconds (9.4-12.1) H 05/29/16 05:07 INR 3.1 05/29/16 05:07 APTT 49.8 Seconds (26.0-36.0) H 05/27/16 14:22 D-Dimer 694 ng/mLFEU (0-500) H 05/27/16 14:22 Sodium 141 mEq/L (136-145) 05/29/16 05:07 Potassium 4.1 mEq/L (3.5-4.5) 05/29/16 05:07 Chloride 105 mEq/L (98-109) 05/29/16 05:07 Carbon Dioxide 26 mEq/L (19-29) 05/29/16 05:07 BUN 37 mg/dL (7-20) H 05/29/16 05:07 Creatinine 1.09 mg/dL (0.57-1.11) 05/29/16 05:07 Est GFR ( Amer) 59 (> 60) L 05/29/16 05:07 Est GFR (Non-Af Amer) 49 (> 60) L 05/29/16 05:07 BUN/Creatinine Ratio 34 (6-26) H 05/29/16 05:07 Glucose 264 mg/dL (70-99) H 05/29/16 05:07 POC Glucose 159 (58-89) H 05/29/16 19:55 Calculated Osmolality 310 (280-300) H 05/29/16 05:07 Calcium 8.7 mg/dL (8.6-10.8) 05/29/16 05:07 Magnesium 1.6 mg/dL (1.6-2.6) 05/28/16 01:19 Total Bilirubin 0.3 mg/dL (0.2-1.2) 05/27/16 14:22 Direct Bilirubin 0.2 mg/dL (0.0-0.5) 05/27/16 14:22 Indirect Bilirubin 0.1 mg/dL (0.0-1.2) 05/27/16 14:22 AST 24 Units/L (5-34) 05/27/16 14:22 ALT 31 Units/L (0-55) 05/27/16 14:22 Alkaline Phosphatase 123 Units/L (38-126) 05/27/16 14:22 Troponin I 0.03 ng/mL (0-0.03) 05/28/16 05:51 B-Natriuretic Peptide 2026 pg/mL (0-100) H 05/27/16 14:22 Serum Total Protein 7.0 g/dL (6.0-8.3) 05/27/16 14:22 Albumin 3.2 g/dL (3.5-5.0) L 05/27/16 14:22 Globulin 3.8 g/dL (2.4-3.5) H 05/27/16 14:22 Albumin/Globulin Ratio 0.8 (1.1-2.2) L 05/27/16 14:22 Triglycerides 96 mg/dL (< 150) 05/28/16 01:19 Cholesterol 117 mg/dL (< 200) 05/28/16 01:19 LDL Cholesterol, Calc 61 mg/dL (0-99) 05/28/16 01:19 VLDL Cholesterol, Calc 19 mg/dL (< 31) 05/28/16 01:19 HDL Cholesterol 37 mg/dL (40-59) L 05/28/16 01:19 Cholesterol/HDL Ratio 3.2 (0-4.9) 05/28/16 01:19 Urine Color Yellow (Yellow) 05/28/16 14:10 Urine Clarity Clear (Clear) 05/28/16 14:10 Urine pH 6.0 pH Units (5.0-8.0) 05/28/16 14:10 Ur Specific [place] 1.010 (1.010-1.025) 05/28/16 14:10 Urine Protein Negative mg/dL (Neg-Trace) 05/28/16 14:10 Urine Glucose (UA) Normal mg/dL (Normal) 05/28/16 14:10 Urine Ketones Negative mg/dL (Negative) 05/28/16 14:10 Urine Blood Small (Negative) H 05/28/16 14:10 Urine Nitrite Negative (Negative) 05/28/16 14:10 Urine Bilirubin Negative (Negative) 05/28/16 14:10 Urine Urobilinogen Normal mg/dL (Normal) 05/28/16 14:10 Ur Leukocyte Esterase Negative (Negative) 05/28/16 14:10 Urine Microscopic RBC 0-3 per hpf (0-3) 05/28/16 14:10 Urine Microscopic WBC 0-3 per hpf (0-3) 05/28/16 14:10 Ur Squamous Epith Cells Few per lpf (None-Few) 05/28/16 14:10 Urine Bacteria None Seen per hpf (None-Few) 05/28/16 14:10 Hyaline Casts None Seen per lpf (None-Few) 05/28/16 14:10 Ur Culture Indicated? NO (NO) 05/28/16 14:10 Impressions Chest X-Ray 05/27/16 13:54 IMPRESSION: Cardiomegaly with central vascular congestion and probable early perihilar congestive changes. Mild dependent right basilar opacification and effusion. D/ / Benito Trevino MD / Benito Trevino MD Interpreting Provider: Benito Trevino MD Abdomen/Pelvis CT 05/27/16 15:17 IMPRESSION: 1. Nonspecific layering high attenuation within the gallbladder, likely either sludge or gallstones. This could be further characterized with a gallbladder ultrasound. 2. No evidence of a renal or ureteral calculus. There is a 6 mm high attenuation nodular lesion with the right kidney lower pole, too small to definitely characterize. Suggest a follow-up abdominal CT study in 6 months to ensure stability of this finding. 3. Small right pleural effusion with passive atelectasis within the right lower lobe. Additional curvilinear opacities within the bilateral lung bases likely represent additional atelectasis, though pneumonia is not excluded. D/ / 05/27/2016 15:56:08 Michael Perez MD / david Interpreting Provider: Michael Perez MD Gallbladder Ultrasound 05/27/16 17:18 IMPRESSION: 1. Evaluation limited as patient had to be in the upright position due to breathing difficulties. 2. Trace gallbladder sludge. No shadowing stones. No sonographic evidence of acute cholecystitis. 3. Nonvisualization of the common bile duct. D/ / 05/27/2016 18:28:03 El[facility] Inter[facility] Provider: Elana Elizalde MD Chest CT 05/29/16 10:38 IMPRESSION: Large area of consolidation concerning for pneumonia involving the right lower lobe with more nonspecific ground-glass opacities in the upper lobes. This may represent airspace disease with mixed features including pneumonia and pulmonary edema. Clinical correlation is recommended. The appearance of the lungs appears worse compared to prior study referenced above. Moderate pericardial effusion is noted. Heavy atherosclerosis of the thoracic aorta and coronary arteries. Radiographic follow-up to resolution is recommended to exclude malignancy. D/ / Luan Campa MD / Luan Campa MD Interpreting Provider: Luan Campa MD
[2016-05-30 01:15] LABS: VBG HCO3 39.5 mEq/L (21-27); VBG PH 7.36 pH Units (7.32-7.42)
[2016-05-30 01:20] LABS: Ionized Calcium 1.18 mmol/L (1.15-1.35)
[2016-05-30 01:30] LABS: Alanine Aminotransferase 18 Units/L (0-55); Albumin/Globulin Ratio 0.7 (1.1-2.2); Alkaline Phosphatase 99 Units/L (38-126); Aspartate Amino Transferase 10 Units/L (5-34); BUN/Creatinine Ratio 34 (6-26); Bilirubin,Total 0.9 mg/dL (0.2-1.2); Blood Urea Nitrogen 37 mg/dL (7-20); Calcium 9.1 mg/dL (8.6-10.8); Carbon Dioxide 34 mEq/L (19-29); Chloride 100 mEq/L (98-109); Creatine Kinase 16 Units/L (29-168); Globulin 4.2 g/dL (2.4-3.5); Glucose 152 mg/dL (70-99); INR 2.4; Lactate Dehydrogenase 149 Units/L (159-327); Magnesium 1.3 mg/dL (1.6-2.6); Osmolality,Calculated 310 (280-300); Phosphorous 3.6 mg/dL (2.3-4.7); Potassium 4.3 mEq/L (3.5-4.5); Prothrombin Time 26.1 Seconds (9.4-12.1); Sodium 144 mEq/L (136-145); Total Protein 7.2 g/dL (6.0-8.3); eGFR For African Americans > 60 (> 60); eGFR For Non-African Americans 50 (> 60)
[2016-05-30 01:37] LABS: C-Reactive Protein 150 mg/L (Less than 5)
[2016-05-30 01:50] LABS: Thyroid Stimulating Hormone 5.309 mcIU/mL (0.350-4.840)
[2016-05-30 01:56] LABS: Prolactin 17.42 ng/mL (5.18-26.53)
[2016-05-30] MEDS ORDERED: Vancomycin 1,250 MG in D5% in Water 250 ML IVPB SCH (02:00)
[2016-05-30] MEDS: Ipratropium/Albuterol Neb 3 ML IH SCH ×5 (02:02→22:55)
[2016-05-30] MEDS ORDERED: Vancomycin 1,500 MG in D5% in Water 250 ML IVPB ONE (02:30)
[2016-05-30 03:24] LABS: Bilirubin,Urine Negative (Negative); Blood,Urine Trace (Negative); Clarity,Urine Clear (Clear); Color,Urine Yellow (Yellow); Glucose,Urine (UA) Normal (Normal); Ketones,Urine Negative (Negative); Leukocyte Esterase,Urine Negative (Negative); Nitrite,Urine Negative (Negative); Protein,Urine 30 mg/dL (Neg-Trace); Specific Gravity,Urine 1.015 (1.010-1.025); Urobilinogen,Urine Normal (Normal)
[2016-05-30 03:34] LABS: Bacteria,Urine None Seen per hpf (None-Few); Hyaline Casts,Urine None Seen per lpf (None-Few); RBC,Urine 0-3 per hpf (0-3); Squamous Epithelial Cell,Urine Many per lpf (None-Few)
[2016-05-30] MEDS: *HR* OxyCODONE Immed Rel 5 MG TABLET PO PRN ×3 (06:05→20:51)
[2016-05-30] MEDS ORDERED: Aminoglycoside Consult 1 EACH MC ONE (07:52)
[2016-05-30] MEDS ORDERED: Meropenem 1,000 MG in 0.9 % Sodium Chloride Mini Bag 100 ML IVPB SCH (08:00)
[2016-05-30] MEDS ORDERED: Levofloxacin 500 MG/100 ML 500 MG/100 ML BAG IVPB ONE (08:35)
[2016-05-30] MEDS: Thiamine (B-1) 100 MG TABLET PO SCH (08:52)
[2016-05-30] MEDS: Metoprolol XL (24 HR) Succ 25 MG TAB.ER.24H PO SCH (08:53)
[2016-05-30] MEDS: Folic Acid 1 MG TABLET PO SCH (08:53)
[2016-05-30] MEDS: Furosemide 20 MG/2 ML VIAL IVP SCH ×2 (08:53→17:35)
[2016-05-30] MEDS: Vitamin B Complex/Vit C/Vit E 1 EACH TABLET PO SCH (08:53)
[2016-05-30] MEDS: Sennosides/Docusate Sodium TABLET PO SCH ×2 (08:53→20:51)
[2016-05-30] MEDS: Aspirin Enteric Coated 81 MG Tablet PO SCH (08:53)
[2016-05-30] MEDS: *HR* Amiodarone 200 MG TABLET PO SCH (08:53)
[2016-05-30] MEDS: Pantoprazole 40 MG VIAL IVP SCH (08:53)
[2016-05-30] MEDS: Insulin LISPRO 300 UNITS/3 ML VIAL SQ SCH ×4 (08:54→20:52)
--- NOTE | 2016-05-30 08:58 | Internal Med Progress Note ---
Date of Encounter: 05/30/16 Time of Encounter: 08:56 - Assessment and plan (1) Pneumonia Current Visit: Yes Status: Acute Assessment and plan: CT chest shows right basal consolidation. Patient will be treated for healthcare associated pneumonia with IV Levaquin, aztreonam and vancomycin. Follow blood cultures. She was noted to have fever spikes overnight with no leukocytosis and lactic acidosis. Continue to monitor closely and de-escalate antibiotics as needed. Qualifiers: Pneumonia type: due to unspecified organism Laterality: right Lung location: lower lobe of lung Qualified Code(s): J18.1 - Lobar pneumonia, unspecified organism (2) Acute encephalopathy Current Visit: Yes Status: Acute Assessment and plan: Reviewed notes from rapid response. Patient had altered mental status, delirium along with strokelike symptoms. CT head showed no acute infarct/ bleed. Labs reviewed, no leukocytosis or lactic acidosis. BNP noted to be improving. Troponin is negative. TSH noted to be 5.3, will check free T4 and free T3. She could be having metabolic encephalopathy due to her medical conditions, infection and hypoxia. We will consult neurology for further recommendations. Continue supportive care and monitor closely. (3) Chest pain Current Visit: Yes Status: Acute Assessment and plan: Right-sided chest pain likely related to atelectasis and right-sided pleural effusion along with possible pneumonia. CT chest showed right-sided pleural effusion, along with consolidation with air bronchograms, concerning for pneumonia. Continue IV antibiotics. Pain control with when necessary oxycodone. Continue treatment for acute CHF. Qualifiers: Chest pain type: pleurodynia Qualified Code(s): R07.81 - Pleurodynia (4) Acute CHF Current Visit: Yes Status: Acute Assessment and plan: Related to underlying valvular heart disease including severe mitral stenosis and moderate aortic stenosis. Noted to have appropriate urine output with net negative balance of 2.8 L yesterday. Continue IV Lasix. Fluid restriction. Cardiac diet. Continue beta jens. Supportive care and supplemental oxygen. Noted to require 5 L/m supplemental oxygen via nasal cannula. Goals of care and CODE STATUS clarified with patient and family at the time of admission, patient wishes for DNR/DNI with no aggressive management. Records from [facility] in [place], [place] have been reviewed; patient has been hospitalized for a week in March 2016 and was diagnosed with severe mitral stenosis and acute CHF and required aggressive diuresis. Patient has declined any kind of surgical intervention and chose to be DNR/DNI. Physical therapy evaluation noted, recommend placement in extended care facility. rehab services aide consulted. Qualifiers: Congestive heart failure type: diastolic Qualified Code(s): I50.31 - Acute diastolic (congestive) heart failure (5) Diabetes mellitus Current Visit: Yes Status: Chronic Assessment and plan: Blood sugars noted to be improving. Continue Accu-Chek blood glucose monitoring with sliding scale insulin as needed. Diabetic diet. Qualifiers: Diabetes mellitus type: type 2 Diabetes mellitus complication status: with unspecified complications Diabetes mellitus exterminator helper insulin use: without exterminator helper use Qualified Code(s): E11.8 - Type 2 diabetes mellitus with unspecified complications (6) Atrial fibrillation Current Visit: Yes Status: Chronic Assessment and plan: Continue beta jens and amiodarone. Currently rate controlled. Continue Coumadin; INR is noted to be 2.4. Telemetry monitoring. Qualifiers: Atrial fibrillation type: chronic Qualified Code(s): I48.2 - Chronic atrial fibrillation (7) Osteoarthritis Current Visit: Yes Status: Chronic Qualifiers: Osteoarthritis location: multiple joints Osteoarthritis type: primary Qualified Code(s): M15.0 - Primary generalized (osteo)arthritis (8) Biliary sludge Current Visit: Yes Status: Suspected (9) Mitral stenosis Current Visit: Yes Status: Chronic Qualifiers: Cardiac valve disease etiology: etiology unspecified Qualified Code(s): I05.0 - Rheumatic mitral stenosis - Subjective Interval history: Rapid response was called on this patient overnight due to altered mental status along with right-sided weakness and facial droop. CT head showed no acute abnormality and vital signs are currently stable. Patient's clinical condition changed significantly since yesterday. She does not answer any questions today. No evidence of dysphagia, needs assisted feeding. Not noted to be in distress but cannot get any history due to patient' s mental status. - Constitutional Vitals: Temp Pulse Resp BP Pulse Ox 98.1 F 66 15 153/78 94 L 05/30/16 07:44 05/30/16 07:44 05/30/16 07:44 05/30/16 07:44 05/30/16 07:44 General appearance: Present: A&O X 0 - Head Head exam: Present: atraumatic, normocephalic - Neck Neck exam general surgery: Present: supple, trachea midline. Absent: lymphadenopathy - Respiratory Respiratory exam: Present: rales (Bibasal crackles). Absent: accessory muscle use, rhonchi, wheezes - Cardiovascular Cardiovascular exam: Present: RRR, +S1, +S2, tachycardia. Absent: diastolic murmur, gallop, rubs, systolic murmur - GI/Abdominal GI/Abdominal exam: Present: normal bowel sounds, soft, no peritoneal signs. Absent: distended, tenderness - Extremities Exam Extremities exam: Present: pedal edema (Improving pedal edema), warm, radial pulses palpable and symetrical. Absent: calf tenderness, cyanotic - Neurological Exam Neurological exam: Present: altered, no focal deficits (Motor power clinically decreased on the right side. Diminished deep tendon reflexes on the right side) . Absent: pronater drift, facial droop, speech deficit - Skin Skin exam: Present: dry, intact Additional comments: Stasis dermatosis bilateral anterior legs Internal Medicine: Result - Labs CBC & Chem 7: 05/28/16 01:19 05/30/16 00:53 Labs: BMP 05/30/16 00:53 Sodium 144 Potassium 4.3 Chloride 100 Carbon Dioxide 34 H BUN 37 H Creatinine 1.08 Glucose 152 H Calcium 9.1 Cardiac Enzymes 05/30/16 Range/Units 00:53 Troponin I 0.04 H* (0-0.03) ng/mL Liver Function 05/30/16 Range/Units 00:53 Total Bilirubin 0.9 D (0.2-1.2) mg/dL AST 10 (5-34) Units/L ALT 18 (0-55) Units/L Alkaline Phosphatase 99 (38-126) Units/L Albumin 3.0 L (3.5-5.0) g/dL Urine 05/30/16 Range/Units 02:58 Urine Color Yellow (Yellow) Urine Clarity Clear (Clear) Urine pH 6.0 (5.0-8.0) pH Units Ur Specific [place] 1.015 (1.010-1.025) Urine Protein 30 H (Neg-Trace) mg/dL Urine Glucose (UA) Normal (Normal) mg/dL - ABG Interpretation ABG results: PT/INR, D-dimer PT 26.1 Seconds (9.4-12.1) H 05/30/16 00:53 D-Dimer 694 ng/mLFEU (0-500) H 05/27/16 14:22 - Impressions Impressions Chest CT 05/29/16 10:38 IMPRESSION: Large area of consolidation concerning for pneumonia involving the right lower lobe with more nonspecific ground-glass opacities in the upper lobes. This may represent airspace disease with mixed features including pneumonia and pulmonary edema. Clinical correlation is recommended. The appearance of the lungs appears worse compared to prior study referenced above. Moderate pericardial effusion is noted. Heavy atherosclerosis of the thoracic aorta and coronary arteries. Radiographic follow-up to resolution is recommended to exclude malignancy. D/ / Luan Campa MD / Luan Campa MD Interpreting Provider: Luan Campa MD Head CT 05/30/16 00:51 IMPRESSION: Motion artifact limits evaluation. No definite acute intracranial abnormality. Patchy hypodensities in the periventricular and subcortical white matter, which are nonspecific, but may represent chronic small vessel ischemic change. D/ / 05/30/2016 08:38:08 Bg Burris MD / Sima Smith Interpreting Provider: Bg Burris MD Consult Discharge Plan - Plan Referrals: NO,PCP [Primary Care Provider] -
[2016-05-30] MEDS ORDERED: Magnesium Sulfate 2 GM in D5% in Water 100 ML IVPB ONE (09:11)
[2016-05-30 09:42] LABS: Triiodothyronine (T3) Free 1.49 pg/mL (1.71-3.71)
--- NOTE | 2016-05-30 17:08 | Neurology - Consult Note ---
Date of Encounter: 05/30/16 Time of Encounter: 04:20 Assessment and Plan (1) Acute encephalopathy Current Visit: Yes Status: Acute This patient is being admitted with significant breathing issues baseline has difficulty with ambulation for quite some time noted to have some mental status changes last night that seems to resolve now she is to be back to her baseline. She already had an MRI of the brain that was reported as negative. On examination there is no acute new symptoms to suggest stroke. She has a history of multiple medical condition and certainly at risk for stroke but at the moment she seems to be stable she is already on aspirin and Coumadin because of her history of A. fib and mitral stenosis I suggest that we should keep her Coumadin level therapeutic. Do not think that we need to add any other medication at this time. Suggest that she should continue on her current medication continue on treating her underlying medical condition. She may benefit from short-term rehabilitation when she is a stabilize. Neurologically patient is a stable (2) CHF exacerbation Current Visit: Yes Status: Acute Qualifiers: Congestive heart failure type: unspecified congestive heart failure type Qualified Code(s): I50.9 - Heart failure, unspecified History of Present Illness HPI: Ms. Black is a 76 year old female was been admitted to the hospital because of breathing issues and possible pneumonia this morning she noted to have some stroke like symptoms along with some mental status changes and there is a question that she may have a slightly drooping of the face. There was no significant focal motor weakness reported , CT head showed no acute infarct/ bleed. Hypertrophic was negative though she did have elevated TSH of 5.3, Patient slowly improved and now seems to be back to her baseline She did have difficulty with ambulation for quite some time and has not been able to walk by herself she has been using a walker on the wheelchair mostly. Patient denies any focal motor weakness now particularly any new symptoms she remain on aspirin and Coumadin. Past Med Surg Social Fam HX - Past Medical History Medical history: atrial fibrillation, CHF, diabetes - Past Surgical History Surgical History: - Social History Smoking Status: Former smoker (quit 2 months ago) Smokeless Tobacco Status: No Alcohol use: none Drug use: none Medications and Allergies Amiodarone [Cordarone] 200 mg PO QAM 05/27/16 [History] Aspirin Enteric Coated [Aspirin EC] 81 mg PO DAILY 05/27/16 [History] Atorvastatin [Lipitor] 40 mg PO HS 05/27/16 [History] Furosemide [Lasix] 20 mg PO DAILY 05/27/16 [History] GlipiZIDE [Glucotrol] 5 mg PO QAM 05/27/16 [History] Lisinopril 2.5 mg PO DAILY 05/27/16 [History] Metformin HCl [Glucophage] 1,500 mg PO QAM 05/27/16 [History] Metoprolol XL (24 HR) Succ [Toprol XL] 25 mg PO DAILY 05/27/16 [History] Potassium Chloride [Klor-Con 10] 10 meq PO BID 05/27/16 [History] Tramadol HCl [Ultram] 50 mg PO Q6H PRN 05/27/16 [History] Warfarin [Coumadin] 4 mg PO 1800 05/27/16 [History] Allergies Penicillins Allergy (Verified 05/27/16 13:49) Rash All Systems: A 10-system review of systems was performed and is negative for pertinent findings except as documented above in the HPI. Review of Systems: A 10-system review of systems was performed and is negative for pertinent findings except as documented above in the HPI. Mental status changes noted earlier last night seems to resolve now she seems to back to her baseline no focal motor weakness no drooping of the face baseline she did have of weakness of lower extremity and difficulty with walking for quite some time Physical Examination - Vital Signs Vital Signs: Initial Vital Signs Temp Pulse Resp BP Pulse Ox 98.7 F 87 22 149/79 85 L 05/27/16 13:50 05/27/16 13:50 05/27/16 13:50 05/27/16 13:50 05/27/16 13:50 - Exam Exam: Heart S1 and S2 audible abdomen is soft decreased breath sounds 1+ pedal edema - Constitutional General appearance: comfortable - Neurologic Sensorimotor examination: intact Detailed motor examination: grossly full strength in all extremities Motor examination - right side: 3/5: tibialis Anterior, quadriceps, toe extension (EHL), plantarflexion, 4/5: deltoids, biceps, triceps, wrist flexion, wrist extension, candy dipper, hip flexors Motor examination - left side: 3/5: hip flexors, candy dipper, quadriceps, tibialis Anterior, toe extension (EHL), plantarflexion, 4/5: deltoids, biceps, triceps, wrist flexion, wrist extension Detailed sensory examination: intact Reflexes: Biceps: 1+, Triceps: 1+, Brachioradialis: 1+, Patella: 1+, Achilles: 1 + Mental Status Examination: awake, alert, oriented to person, oriented to place, oriented to time, follows commands appropriately, answers questions appropriately Cranial nerve examination: PERRL, EOMI, visual vigil intact, no facial asymmetry is present Results - Laboratory Findings CBC and BMP: 05/28/16 01:19 05/30/16 00:53 Abnormal lab findings: Abnormal lab results RBC 3.56 M/mcL (3.82-4.97) L 05/28/16 01:19 Hgb 10.3 g/dL (11.5-15.4) L 05/28/16 01:19 Hct 34.9 % (35.3-44.9) L 05/28/16 01:19 MCHC 29.5 g/dL (31.6-35.5) L 05/28/16 01:19 RDW 18.8 % (11.5-14.5) H 05/28/16 01:19 MPV 9.1 fL (9.4-12.4) L 05/28/16 01:19 ESR 97 mm/hr (0-15) H 05/30/16 00:53 PT 26.1 Seconds (9.4-12.1) H 05/30/16 00:53 APTT 49.8 Seconds (26.0-36.0) H 05/27/16 14:22 D-Dimer 694 ng/mLFEU (0-500) H 05/27/16 14:22 VBG pCO2 70 mmHg (41-51) H 05/30/16 00:53 VBG HCO3 39.5 mEq/L (21-27) H 05/30/16 00:53 Carbon Dioxide 34 mEq/L (19-29) H 05/30/16 00:53 BUN 37 mg/dL (7-20) H 05/30/16 00:53 Est GFR (Non-Af Amer) 50 (> 60) L 05/30/16 00:53 BUN/Creatinine Ratio 34 (6-26) H 05/30/16 00:53 Glucose 152 mg/dL (70-99) H 05/30/16 00:53 POC Glucose 159 (58-89) H 05/29/16 19:55 Calculated Osmolality 310 (280-300) H 05/30/16 00:53 Magnesium 1.3 mg/dL (1.6-2.6) L 05/30/16 00:53 Lactate Dehydrogenase 149 Units/L (159-327) L 05/30/16 00:53 Creatine Kinase 16 Units/L (29-168) L 05/30/16 00:53 Troponin I 0.04 ng/mL (0-0.03) H* 05/30/16 00:53 C-Reactive Protein 150 mg/L (Less than 5) H 05/30/16 00:53 B-Natriuretic Peptide 1067 pg/mL (0-100) H 05/30/16 02:35 Albumin 3.0 g/dL (3.5-5.0) L 05/30/16 00:53 Globulin 4.2 g/dL (2.4-3.5) H 05/30/16 00:53 Albumin/Globulin Ratio 0.7 (1.1-2.2) L 05/30/16 00:53 HDL Cholesterol 37 mg/dL (40-59) L 05/28/16 01:19 TSH 5.309 mcIU/mL (0.350-4.840) H 05/30/16 00:53 Free T3 1.49 pg/mL (1.71-3.71) L 05/30/16 00:53 Urine Protein 30 mg/dL (Neg-Trace) H 05/30/16 02:58 Urine Blood Trace (Negative) H 05/30/16 02:58 Urine Microscopic WBC 3-5 per hpf (0-3) H 05/30/16 02:58 Ur Squamous Epith Cells Many per lpf (None-Few) H 05/30/16 02:58 - Diagnostic Findings Additional findings: MRI of the brain was negative Consult Discharge Plan - Plan Referrals: NO,PCP [Primary Care Provider] -
[2016-05-30] MEDS: *HR* Warfarin 4 MG TABLET PO SCH (17:35)
[2016-05-30] MEDS ORDERED: *HR* LORazepam 0.5 MG TABLET PO ONE (23:39)
[2016-05-31] MEDS: Ipratropium/Albuterol Neb 3 ML IH SCH ×4 (04:39→22:24)
[2016-05-31 06:43] LABS: Basophils % 0.3 %; Eosinophils # 0.1 K/mcL (0.0-0.6); Eosinophils % 0.7 %; Hematocrit 34.3 % (35.3-44.9); Immature Granulocytes % 0.4 % (0-4); Lymphocytes # 1.6 K/mcL (0.6-4.6); Lymphocytes % 15.4 %; Mean Corpuscular HGB Conc 32.1 g/dL (31.6-35.5); Mean Corpuscular Hemoglobin 30.1 pg (28.0-33.3); Mean Platelet Volume 9.7 fL (9.4-12.4); Monocytes # 1.4 K/mcL (0.0-1.3); Monocytes % 13.6 %; Neutrophils # 7.1 K/mcL (1.6-8.9); Platelet Count 294 K/mcL (140-400); Red Blood Count 3.65 M/mcL (3.82-4.97); Red Cell Distribution Width 17.3 % (11.5-14.5); Segmented Neutrophils % 69.6 %
[2016-05-31 06:48] LABS: INR 2.8; Prothrombin Time 31.5 Seconds (9.4-12.1)
[2016-05-31 07:03] LABS: BUN/Creatinine Ratio 35 (6-26); Blood Urea Nitrogen 37 mg/dL (7-20); Calcium 8.8 mg/dL (8.6-10.8); Carbon Dioxide 31 mEq/L (19-29); Chloride 97 mEq/L (98-109); Glucose 170 mg/dL (70-99); Osmolality,Calculated 303 (280-300); Potassium 3.6 mEq/L (3.5-4.5); Sodium 140 mEq/L (136-145); eGFR For African Americans > 60 (> 60); eGFR For Non-African Americans 51 (> 60)
[2016-05-31] MEDS ORDERED: Vancomycin 1,250 MG in D5% in Water 250 ML IVPB SCH (08:00)
[2016-05-31] MEDS: Aspirin Enteric Coated 81 MG Tablet PO SCH (08:38)
[2016-05-31] MEDS: Vitamin B Complex/Vit C/Vit E 1 EACH TABLET PO SCH (08:38)
[2016-05-31] MEDS: Metoprolol XL (24 HR) Succ 25 MG TAB.ER.24H PO SCH (08:38)
[2016-05-31] MEDS: Folic Acid 1 MG TABLET PO SCH (08:38)
[2016-05-31] MEDS: *HR* Amiodarone 200 MG TABLET PO SCH (08:38)
[2016-05-31] MEDS: Sennosides/Docusate Sodium TABLET PO SCH ×2 (08:38→20:27)
[2016-05-31] MEDS: Thiamine (B-1) 100 MG TABLET PO SCH (08:38)
[2016-05-31] MEDS: Pantoprazole 40 MG VIAL IVP SCH (08:38)
[2016-05-31] MEDS: Furosemide 20 MG/2 ML VIAL IVP SCH (08:39)
[2016-05-31] MEDS: Insulin LISPRO 300 UNITS/3 ML VIAL SQ SCH ×4 (08:40→20:27)
[2016-05-31] MEDS ORDERED: Levofloxacin 250 MG/50 ML 250 MG/50 ML BAG IVPB SCH (09:00)
--- NOTE | 2016-05-31 10:20 | Neurology Progress Note ---
Date of Encounter: 05/31/16 Time of Encounter: 09:15 Assessment and Plan (1) Acute encephalopathy Current Visit: Yes Status: Acute Patient initially encephalopathic. She is now speaking and answering most questions correctly. Likely due to patient's hypoxia. Patient has clinically improved. No neurologic deficits noted. Neurologically patient is a stable. We will sign off at this time. (2) Acute on chronic respiratory failure with hypoxemia Current Visit: Yes Status: Acute Likely contributed to patient's delirium (3) Acute CHF Current Visit: Yes Status: Acute Qualifiers: Congestive heart failure type: unspecified congestive heart failure type Qualified Code(s): I50.9 - Heart failure, unspecified Subjective Principal diagnosis: Weakness Interval history: Patient improvement clinically. No change neurologically. Patient speaking without difficulty without neurologic deficit. Objective - Constitutional Vitals: Temp Pulse Resp BP Pulse Ox 98.1 F 83 16 110/66 97 05/31/16 08:02 05/31/16 08:02 05/31/16 08:02 05/31/16 08:02 05/31/16 08:02 General appearance: Present: A&O X 2, no acute distress - Neurological Exam Sensorimotor examination: Present: intact Motor Examination: Present: grossly full strength in all extremities Motor examination - right side: 3/5: motion picture printer, hip flexors, tibialis Anterior, quadriceps, toe extension (EHL), plantarflexion, 4/5: deltoids, biceps, triceps , wrist flexion, wrist extension Motor examination - left side: 3/5: hip flexors, motion picture printer, quadriceps, tibialis Anterior, toe extension (EHL), plantarflexion, 4/5: deltoids, biceps, triceps, wrist flexion, wrist extension Sensation intact: Present: intact Reflexes: Biceps: 2+, Patella: 2+ Mental Status Examination: Present: awake, alert, oriented to person, oriented to place, oriented to time, follows commands appropriately, answers questions appropriately Cranial nerve examination: Present: PERRL, EOMI, visual vigil intact, no facial asymmetry is present Results - Laboratory Findings CBC and BMP: 05/31/16 05:54 05/31/16 05:54 Abnormal lab findings: Abnormal lab results RBC 3.65 M/mcL (3.82-4.97) L 05/31/16 05:54 Hgb 11.0 g/dL (11.5-15.4) L 05/31/16 05:54 Hct 34.3 % (35.3-44.9) L 05/31/16 05:54 RDW 17.3 % (11.5-14.5) H 05/31/16 05:54 Monocytes # 1.4 K/mcL (0.0-1.3) H 05/31/16 05:54 ESR 97 mm/hr (0-15) H 05/30/16 00:53 PT 31.5 Seconds (9.4-12.1) H 05/31/16 05:54 APTT 49.8 Seconds (26.0-36.0) H 05/27/16 14:22 D-Dimer 694 ng/mLFEU (0-500) H 05/27/16 14:22 VBG pCO2 70 mmHg (41-51) H 05/30/16 00:53 VBG HCO3 39.5 mEq/L (21-27) H 05/30/16 00:53 Chloride 97 mEq/L (98-109) L 05/31/16 05:54 Carbon Dioxide 31 mEq/L (19-29) H 05/31/16 05:54 BUN 37 mg/dL (7-20) H 05/31/16 05:54 Est GFR (Non-Af Amer) 51 (> 60) L 05/31/16 05:54 BUN/Creatinine Ratio 35 (6-26) H 05/31/16 05:54 Glucose 170 mg/dL (70-99) H 05/31/16 05:54 POC Glucose 150 (58-89) H 05/30/16 20:23 Calculated Osmolality 303 (280-300) H 05/31/16 05:54 Magnesium 1.3 mg/dL (1.6-2.6) L 05/30/16 00:53 Lactate Dehydrogenase 149 Units/L (159-327) L 05/30/16 00:53 Creatine Kinase 16 Units/L (29-168) L 05/30/16 00:53 Troponin I 0.04 ng/mL (0-0.03) H* 05/30/16 00:53 C-Reactive Protein 150 mg/L (Less than 5) H 05/30/16 00:53 B-Natriuretic Peptide 1067 pg/mL (0-100) H 05/30/16 02:35 Albumin 3.0 g/dL (3.5-5.0) L 05/30/16 00:53 Globulin 4.2 g/dL (2.4-3.5) H 05/30/16 00:53 Albumin/Globulin Ratio 0.7 (1.1-2.2) L 05/30/16 00:53 HDL Cholesterol 37 mg/dL (40-59) L 05/28/16 01:19 TSH 5.309 mcIU/mL (0.350-4.840) H 05/30/16 00:53 Free T3 1.49 pg/mL (1.71-3.71) L 05/30/16 00:53 Urine Protein 30 mg/dL (Neg-Trace) H 05/30/16 02:58 Urine Blood Trace (Negative) H 05/30/16 02:58 Urine Microscopic WBC 3-5 per hpf (0-3) H 05/30/16 02:58 Ur Squamous Epith Cells Many per lpf (None-Few) H 05/30/16 02:58 Consult Discharge Plan - Plan Referrals: NO,PCP [Primary Care Provider] - - Attending Attestation I examined this patient and my medical decision-making was reviewed with the Resident Physician. I agree with the documented findings, disposition and treatment plan as described except to the extent set forth below.
--- NOTE | 2016-05-31 12:05 | Internal Med Progress Note ---
Date of Encounter: 05/31/16 Time of Encounter: 12:02 - Assessment and plan (1) Biliary sludge Current Visit: Yes Status: Suspected (2) Acute CHF Current Visit: Yes Status: Acute Assessment and plan: Related to underlying valvular heart disease including severe mitral stenosis and moderate aortic stenosis. Continues to have significant urine output. Switch to oral Lasix 40 mg daily. Fluid restriction. Cardiac diet. Continue beta jens. Supportive care and supplemental oxygen. Noted to require 4 L/m supplemental oxygen via nasal cannula. Goals of care and CODE STATUS clarified with patient and family at the time of admission, patient wishes for DNR/DNI with no aggressive management. Physical therapy evaluation noted, recommend placement in extended care facility. donor services coordinator consulted, working on the same. Qualifiers: Congestive heart failure type: unspecified congestive heart failure type Qualified Code(s): I50.9 - Heart failure, unspecified (3) Acute on chronic respiratory failure with hypoxemia Current Visit: Yes Status: Acute (4) Acute encephalopathy Current Visit: Yes Status: Acute Assessment and plan: Resolved today, at baseline mental status. Neurology consult and follow-up appreciated, recommend no new intervention. CT head and MRI brain showed no acute infarct/bleed. She could be having metabolic encephalopathy due to her medical conditions, infection and hypoxia. Continue supportive care and monitor closely. (5) Diabetes mellitus Current Visit: Yes Status: Chronic Assessment and plan: Blood sugars better controlled. Continue Accu-Chek blood glucose monitoring with sliding scale insulin as needed. Diabetic diet. Qualifiers: Diabetes mellitus type: type 2 Diabetes mellitus complication status: with unspecified complications Diabetes mellitus superintendent terminal insulin use: without intermediate use Qualified Code(s): E11.8 - Type 2 diabetes mellitus with unspecified complications (6) Atrial fibrillation Current Visit: Yes Status: Chronic Assessment and plan: Continue beta jens and amiodarone. Currently rate controlled. Continue Coumadin; INR is noted to be 2.8. Telemetry monitoring. Qualifiers: Atrial fibrillation type: chronic Qualified Code(s): I48.2 - Chronic atrial fibrillation (7) Osteoarthritis Current Visit: Yes Status: Chronic Qualifiers: Osteoarthritis location: multiple joints Osteoarthritis type: primary Qualified Code(s): M15.0 - Primary generalized (osteo)arthritis (8) Pneumonia Current Visit: Yes Status: Acute Assessment and plan: CT chest shows right basal consolidation. Improving clinically. Blood cultures remain negative so far. Continue IV Levaquin and hold vancomycin and aztreonam at this time. No fever or leukocytosis noted. Qualifiers: Pneumonia type: due to unspecified organism Laterality: right Lung location: lower lobe of lung Qualified Code(s): J18.1 - Lobar pneumonia, unspecified organism - Subjective Interval history: Noted to be awake and alert today. Able to answer appropriately. Reports generalized weakness and fatigue but no chest or abdominal pain, shortness of breath or palpitations. - Constitutional Vitals: Temp Pulse Resp BP Pulse Ox 98.2 F 86 16 104/60 90 L 05/31/16 11:32 05/31/16 11:32 05/31/16 11:32 05/31/16 11:32 05/31/16 11:32 General appearance: Present: A&O X 2, answers questions appropriately - Respiratory Respiratory exam: Present: CTAB. Absent: accessory muscle use, rales, rhonchi, wheezes - Cardiovascular Cardiovascular exam: Present: RRR, +S1, +S2, systolic murmur (3/6 in left lower parasternal area). Absent: diastolic murmur, gallop, rubs - GI/Abdominal GI/Abdominal exam: Present: normal bowel sounds, soft, no peritoneal signs. Absent: distended, tenderness - Extremities Exam Extremities exam: Present: pedal edema (Improved pedal edema), warm, radial pulses palpable and symetrical. Absent: calf tenderness, cyanotic - Neurological Exam Neurological exam: Present: CN II-XII intact, oriented X3, no focal deficits, strengths equal and symetr throughout (Diffusely decreased bilateral extremities ). Absent: pronater drift, facial droop, speech deficit Internal Medicine: Result - Labs CBC & Chem 7: 05/31/16 05:54 05/31/16 05:54 Labs: Short CBC 05/31/16 Range/Units 05:54 WBC 10.2 (4.3-11.1) K/mcL Hgb 11.0 L (11.5-15.4) g/dL Hct 34.3 L (35.3-44.9) % Plt Count 294 (140-400) K/mcL Neutrophils # 7.1 (1.6-8.9) K/mcL BMP 05/31/16 05:54 Sodium 140 Potassium 3.6 Chloride 97 L Carbon Dioxide 31 H BUN 37 H Creatinine 1.06 Glucose 170 H Calcium 8.8 - ABG Interpretation ABG results: PT/INR, D-dimer PT 31.5 Seconds (9.4-12.1) H 05/31/16 05:54 D-Dimer 694 ng/mLFEU (0-500) H 05/27/16 14:22 - Impressions Impressions Brain MRI 05/30/16 09:09 IMPRESSION: Motion degraded study. No acute intracranial abnormality. Mild chronic microvascular ischemic disease. D/ / 05/30/2016 15:07:13 Baron Kenney MD / bcarter Interpreting Provider: Baron Kenney MD Consult Discharge Plan - Plan Referrals: NO,PCP [Primary Care Provider] -
[2016-05-31] MEDS: *HR* Warfarin 4 MG TABLET PO SCH (17:20)
[2016-06-01] MEDS: *HR* OxyCODONE Immed Rel 5 MG TABLET PO PRN ×3 (00:05→21:37)
[2016-06-01] MEDS: Ipratropium/Albuterol Neb 3 ML IH SCH ×4 (05:24→23:48)
[2016-06-01 07:02] LABS: Basophils % 0.2 %; Eosinophils # 0.2 K/mcL (0.0-0.6); Eosinophils % 1.7 %; Hematocrit 32.1 % (35.3-44.9); Hemoglobin 10.1 g/dL (11.5-15.4); Immature Granulocytes % 0.4 % (0-4); Lymphocytes # 1.8 K/mcL (0.6-4.6); Lymphocytes % 18.2 %; Mean Corpuscular HGB Conc 31.5 g/dL (31.6-35.5); Mean Corpuscular Volume 95.3 fL (83.0-100.0); Mean Platelet Volume 9.7 fL (9.4-12.4); Monocytes # 1.4 K/mcL (0.0-1.3); Monocytes % 13.7 %; Neutrophils # 6.6 K/mcL (1.6-8.9); Platelet Count 297 K/mcL (140-400); Red Blood Count 3.37 M/mcL (3.82-4.97); Red Cell Distribution Width 17.2 % (11.5-14.5); Segmented Neutrophils % 65.8 %
[2016-06-01 07:19] LABS: Calcium 8.6 mg/dL (8.6-10.8); Potassium 3.4 mEq/L (3.5-4.5)
[2016-06-01] MEDS: Folic Acid 1 MG TABLET PO SCH (08:27)
[2016-06-01] MEDS: Thiamine (B-1) 100 MG TABLET PO SCH (08:27)
[2016-06-01] MEDS: Aspirin Enteric Coated 81 MG Tablet PO SCH (08:27)
[2016-06-01] MEDS: Furosemide 40 MG TABLET PO SCH (08:27)
[2016-06-01] MEDS: Pantoprazole 40 MG VIAL IVP SCH (08:27)
[2016-06-01] MEDS: Sennosides/Docusate Sodium TABLET PO SCH ×2 (08:27→20:48)
[2016-06-01] MEDS: Vitamin B Complex/Vit C/Vit E 1 EACH TABLET PO SCH (08:27)
[2016-06-01] MEDS: *HR* Amiodarone 200 MG TABLET PO SCH (08:27)
[2016-06-01] MEDS: Metoprolol XL (24 HR) Succ 25 MG TAB.ER.24H PO SCH (08:27)
[2016-06-01] MEDS: Insulin LISPRO 300 UNITS/3 ML VIAL SQ SCH ×4 (08:28→20:48)
[2016-06-01] MEDS ORDERED: Levofloxacin 750 MG/150 ML 750 MG/150 ML BAG IVPB SCH (09:00)
[2016-06-01] MEDS ORDERED: Lactulose Oral Soln 20 GM/30 ML UDC PO ONE (11:05)
[2016-06-01 13:40] LABS: INR 2.8; Prothrombin Time 31.4 Seconds (9.4-12.1)
--- NOTE | 2016-06-01 15:14 | Internal Med Progress Note ---
Date of Encounter: 06/01/16 Time of Encounter: 10:00 - Assessment and plan (1) Acute CHF Current Visit: Yes Status: Acute Assessment and plan: Related to underlying valvular heart disease including severe mitral stenosis and moderate aortic stenosis. Continues to have significant urine output. Switch to oral Lasix 40 mg. Fluid restriction. Cardiac diet. Continue beta jens. Supportive care and supplemental oxygen. Noted to require 4 L/m supplemental oxygen via nasal cannula. Goals of care and CODE STATUS clarified with patient and family at the time of admission, patient wishes for DNR/DNI with no aggressive management. Physical therapy evaluation noted, recommend placement in extended care facility. Patient is accepted by [facility]. We plan to discharge patient tomorrow if kidney function is stable. Qualifiers: Congestive heart failure type: unspecified congestive heart failure type Qualified Code(s): I50.9 - Heart failure, unspecified (2) Acute encephalopathy Current Visit: Yes Status: Acute Assessment and plan: Resolved, at baseline mental status. Neurology consult and follow-up appreciated, recommend no new intervention. CT head and MRI brain showed no acute infarct/bleed. She could be having metabolic encephalopathy due to her medical conditions, infection and hypoxia. Continue supportive care and monitor closely. (3) Acute on chronic respiratory failure with hypoxemia Current Visit: Yes Status: Acute Assessment and plan: Continue supportive treatment (4) Pneumonia Current Visit: Yes Status: Acute Assessment and plan: CT chest shows right basal consolidation. Improving clinically. Blood cultures remain negative so far. Continue IV Levaquin. No fever or leukocytosis noted. Qualifiers: Pneumonia type: due to unspecified organism Laterality: right Lung location: lower lobe of lung Qualified Code(s): J18.1 - Lobar pneumonia, unspecified organism (5) Atrial fibrillation Current Visit: Yes Status: Chronic Assessment and plan: Continue beta jens and amiodarone. Currently rate controlled. Continue Coumadin; INR is noted to be 2.8. Telemetry monitoring. Qualifiers: Atrial fibrillation type: chronic Qualified Code(s): I48.2 - Chronic atrial fibrillation (6) Diabetes mellitus Current Visit: Yes Status: Chronic Assessment and plan: Blood sugars better controlled. Continue Accu-Chek blood glucose monitoring with sliding scale insulin as needed. Diabetic diet. Qualifiers: Diabetes mellitus type: type 2 Diabetes mellitus complication status: with unspecified complications Diabetes mellitus detention insulin use: without medical terminologist use Qualified Code(s): E11.8 - Type 2 diabetes mellitus with unspecified complications (7) Osteoarthritis Current Visit: Yes Status: Chronic Assessment and plan: Continue current treatment Qualifiers: Osteoarthritis location: multiple joints Osteoarthritis type: primary Qualified Code(s): M15.0 - Primary generalized (osteo)arthritis (8) DVT prophylaxis Current Visit: Yes Status: Acute Assessment and plan: Patient is on Coumadin - Subjective Interval history: Patient is a 76-year-old female admitted for acute CHF exacerbation. Her past medical history is significant for A. fib, CHF, diabetes. Patient was seen and examined. Her shortness of breath has improved significantly. Denies chest pain. Vitals are stable. Still need a high level oxygen to maintain the oxygen saturation. Renal function slightly Worse, Possibly Due To Diuretics Use. Lasix Has Been Changed to by Mouth. Will Follow up Kidney Function. - Constitutional Vitals: Temp Pulse Resp BP Pulse Ox 97.5 F L 83 18 109/61 90 L 06/01/16 11:20 06/01/16 11:20 06/01/16 11:20 06/01/16 11:20 06/01/16 11:20 General appearance: Present: A&O X 2, answers questions appropriately - Head Head exam: Present: atraumatic, normocephalic - Eye Eye exam: Present: PERRL, conjuntiva pink, sclera anicteric Pupils: Present: PERRL - Neck Neck exam general surgery: Present: supple, trachea midline. Absent: lymphadenopathy - Respiratory Respiratory exam: Present: CTAB. Absent: accessory muscle use, rales, rhonchi, wheezes - Cardiovascular Cardiovascular exam: Present: RRR, +S1, +S2. Absent: diastolic murmur, gallop, rubs, systolic murmur - GI/Abdominal GI/Abdominal exam: Present: normal bowel sounds, soft, no peritoneal signs. Absent: distended, tenderness - Extremities Exam Extremities exam: Present: warm, radial pulses palpable and symetrical. Absent : calf tenderness, cyanotic, pedal edema - Neurological Exam Neurological exam: Present: CN II-XII intact, oriented X3, no focal deficits. Absent: pronater drift, facial droop, speech deficit - Skin Skin exam: Present: dry, intact Internal Medicine: Result - Labs CBC & Chem 7: 06/01/16 05:51 06/01/16 05:51 Labs: Short CBC 06/01/16 Range/Units 05:51 WBC 10.0 (4.3-11.1) K/mcL Hgb 10.1 L (11.5-15.4) g/dL Hct 32.1 L (35.3-44.9) % Plt Count 297 (140-400) K/mcL Neutrophils # 6.6 (1.6-8.9) K/mcL BMP 06/01/16 05:51 Sodium 140 Potassium 3.4 L Chloride 98 Carbon Dioxide 29 BUN 54 H D Creatinine 1.20 H Glucose 196 H Calcium 8.6 - ABG Interpretation ABG results: PT/INR, D-dimer PT 31.4 Seconds (9.4-12.1) H 06/01/16 12:56 D-Dimer 694 ng/mLFEU (0-500) H 05/27/16 14:22 - Impressions Impressions Head CT 05/30/16 00:51 IMPRESSION: Motion artifact limits evaluation. No definite acute intracranial abnormality. Patchy hypodensities in the periventricular and subcortical white matter, which are nonspecific, but may represent chronic small vessel ischemic change. D/ / 05/30/2016 08:38:08 Bg Burris MD / Sima Smith Interpreting Provider: Bg Burris MD Consult Discharge Plan - Plan Referrals: NO,PCP [Primary Care Provider] -
[2016-06-01] MEDS: *HR* Warfarin 4 MG TABLET PO SCH (17:17)
[2016-06-01] MEDS ORDERED: Warfarin perPT PO PRN (18:00)
[2016-06-02] MEDS: Ipratropium/Albuterol Neb 3 ML IH SCH ×3 (03:30→16:05)
[2016-06-02 05:26] LABS: Basophils % 0.2 %; Eosinophils # 0.3 K/mcL (0.0-0.6); Eosinophils % 2.9 %; Hematocrit 30.3 % (35.3-44.9); Hemoglobin 9.7 g/dL (11.5-15.4); Immature Granulocytes % 0.5 % (0-4); Lymphocytes % 18.5 %; Mean Corpuscular Hemoglobin 30.2 pg (28.0-33.3); Mean Corpuscular Volume 94.4 fL (83.0-100.0); Mean Platelet Volume 9.8 fL (9.4-12.4); Monocytes # 1.4 K/mcL (0.0-1.3); Monocytes % 12.8 %; Neutrophils # 7.1 K/mcL (1.6-8.9); Platelet Count 289 K/mcL (140-400); Red Blood Count 3.21 M/mcL (3.82-4.97); Red Cell Distribution Width 16.7 % (11.5-14.5); Segmented Neutrophils % 65.1 %
[2016-06-02 05:39] LABS: INR 3.2; Prothrombin Time 35.5 Seconds (9.4-12.1)
[2016-06-02 05:46] LABS: Calcium 8.5 mg/dL (8.6-10.8); Potassium 3.5 mEq/L (3.5-4.5)
[2016-06-02] MEDS: *HR* OxyCODONE Immed Rel 5 MG TABLET PO PRN ×2 (06:23→13:38)
[2016-06-02 07:03] VITALS: BP 115/73
[2016-06-02] MEDS: Vitamin B Complex/Vit C/Vit E 1 EACH TABLET PO SCH (11:22)
[2016-06-02] MEDS: Folic Acid 1 MG TABLET PO SCH (11:22)
[2016-06-02] MEDS: Furosemide 40 MG TABLET PO SCH (11:22)
[2016-06-02] MEDS: Thiamine (B-1) 100 MG TABLET PO SCH (11:22)
[2016-06-02] MEDS: Aspirin Enteric Coated 81 MG Tablet PO SCH (11:22)
[2016-06-02] MEDS: Sennosides/Docusate Sodium TABLET PO SCH (11:23)
[2016-06-02] MEDS: *HR* Amiodarone 200 MG TABLET PO SCH (11:23)
[2016-06-02] MEDS: Pantoprazole 40 MG VIAL IVP SCH (11:24)
[2016-06-02] MEDS: Metoprolol XL (24 HR) Succ 25 MG TAB.ER.24H PO SCH (11:25)
[2016-06-02] MEDS: Insulin LISPRO 300 UNITS/3 ML VIAL SQ SCH ×2 (13:39→17:39)
--- NOTE | 2016-06-02 15:55 | Discharge Summary ---
Date of Encounter: 06/02/16 Time of Encounter: 12:00 - Discharge Diagnosis (1) Acute CHF Priority: Primary Status: Acute Qualifiers: Congestive heart failure type: unspecified congestive heart failure type Qualified Code(s): I50.9 - Heart failure, unspecified (2) Acute encephalopathy Priority: Primary Status: Acute (3) Acute on chronic respiratory failure with hypoxemia Priority: Secondary Status: Acute (4) Pneumonia Priority: Primary Status: Acute Qualifiers: Pneumonia type: due to unspecified organism Laterality: right Lung location: lower lobe of lung Qualified Code(s): J18.1 - Lobar pneumonia, unspecified organism (5) Atrial fibrillation Priority: Secondary Status: Chronic Qualifiers: Atrial fibrillation type: chronic Qualified Code(s): I48.2 - Chronic atrial fibrillation (6) Diabetes mellitus Priority: Secondary Status: Chronic Qualifiers: Diabetes mellitus type: type 2 Diabetes mellitus complication status: with unspecified complications Diabetes mellitus chcf insulin use: without chcf use Qualified Code(s): E11.8 - Type 2 diabetes mellitus with unspecified complications (7) Osteoarthritis Priority: Secondary Status: Chronic Qualifiers: Osteoarthritis location: multiple joints Osteoarthritis type: primary Qualified Code(s): M15.0 - Primary generalized (osteo)arthritis (8) DVT prophylaxis Priority: Secondary Status: Acute - Discharge Medications Prescriptions: Levofloxacin [Levaquin] 750 mg PO Q48H #3 tablet Home Medications: Amiodarone [Cordarone] 200 mg PO QAM 05/27/16 [History] Aspirin Enteric Coated [Aspirin EC] 81 mg PO DAILY 05/27/16 [History] Atorvastatin [Lipitor] 40 mg PO HS 05/27/16 [History] GlipiZIDE [Glucotrol] 5 mg PO QAM 05/27/16 [History] Lisinopril 2.5 mg PO DAILY 05/27/16 [History] Metformin HCl [Glucophage] 1,500 mg PO QAM 05/27/16 [History] Metoprolol XL (24 HR) Succ [Toprol Xl] 25 mg PO DAILY 05/27/16 [History] Potassium Chloride [Klor-Con 10] 10 meq PO BID 05/27/16 [History] Tramadol HCl [Ultram] 50 mg PO Q6H PRN 05/27/16 [History] Furosemide [Lasix] 40 mg PO DAILY #0 06/02/16 [Rx] Levofloxacin [Levaquin] 750 mg PO Q48H #3 tablet 06/02/16 [Rx] Warfarin [Coumadin] 3 mg PO 1800 #0 06/02/16 [Rx] Allergies/Adverse Reactions: Allergies Penicillins Allergy (Verified 05/27/16 13:49) Rash - Notes to Outpatient Provider 1. Please continue Levaquin 750mg q 48h for 6 more days. 2. Her INR is 3.2 today, decrease coumadin dose from 4mg qd to 3mg qd, plz closely f/u with INR (especially pt is taking levaquin now). 3. Her home Lasix dose was changed from 20 mg to 40 mg by mouth daily. Date of admission: 05/27/16 17:50 Primary care physician: PCP NO Consults: 05/28/16 14:01 Consult to Drawbench Operator Helper [CONS] Routine Reason for SW Consult: PT rec SNF 05/30/16 01:08 Consult to Nurse Navigator [CONS] Routine Comment: 05/30/16 09:09 Consult to Neurology [CONS] Routine Consulting Provider: Neurology [facility] Reason for Consult: AMS, right-sided weakness, asterixis Call Completed: Yes Discharging clinician: Joey Tellez Anticipated date of discharge: 06/02/16 - Patient Status Disposition: Transfer SNF Condition: Good Overall status at discharge: patient is back to baseline - Discharge Instructions Follow Up With: NO,PCP [Primary Care Provider] - - Diet and Activity Activity: as per physical therapy Diet: diabetic diet Interval History: Ms. Black is a 76 year old female with history of CHF and atrial fibrillation was brought in for evaluation of confusion and lethargy. Patient has home health services including physical therapy and has been working with physical therapy this morning when she started getting weak and not answering appropriately. She is currently alert and oriented and history is also supplemented by her daughter and son-in-law at bedside. Patient has recently been hospitalized in [place], [place] with similar complaints and has been diagnosed with congestive heart failure and was discharged to rehabilitation facility from where she came home on home health services. She reports right-sided lower rib pain and right upper abdominal pain just below her rib cage, not associated with nausea or vomiting or diarrhea. Her pain is worsened with inspiration. No history of gallbladder disease or cholecystectomy. She does not report chest pain today although she does have shortness of breath and some leg swelling, which has not gotten any worse. She is noted to be on home oxygen. No cough, fever, chills or palpitations. Hospital course: Ms. Black is a 76 year old female was admitted as CHF exacerbation. She was treated with diuretics. She was also treated as pneumonia with Levaquin. After treatment her condition has improved, shortness of breath is much less. Patient is still needed oxygen to maintain oxygen saturation. She will discharge to half-way with oxygen and by mouth Levaquin. I saw and examined the patient today, she is awake alert, vitals are stable. In no acute respiratory distress. Patient has no bowel movement for 7 days, had an emergent today and had large amount of stool out. Patient has improved oxygen demand. Patient was discharged half-way with by mouth antibiotics and continue oxygen therapy. - Time Spent with Patient Total time spent providing and/or coordinating discharge services: 40 minutes Greater than 30 minutes - Constitutional Vitals: Temp Pulse Resp BP Pulse Ox 97.9 F 80 18 115/73 94 L 06/02/16 06:55 06/02/16 06:55 06/02/16 10:32 06/02/16 06:55 06/02/16 11:00 General appearance: Present: A&O X 2, no acute distress, answers questions appropriately - Head Head exam: Present: atraumatic, normocephalic - Eye Eye exam: Present: PERRL, conjuntiva pink, sclera anicteric Pupils: Present: PERRL - Neck Neck exam general surgery: Present: supple, trachea midline. Absent: lymphadenopathy - Respiratory Respiratory exam: Present: CTAB. Absent: accessory muscle use, rales, rhonchi, wheezes - Cardiovascular Cardiovascular exam: Present: RRR, +S1, +S2. Absent: diastolic murmur, gallop, rubs, systolic murmur - GI/Abdominal GI/Abdominal exam: Present: normal bowel sounds, soft, no peritoneal signs. Absent: distended, tenderness - Extremities Exam Extremities exam: Present: warm, radial pulses palpable and symetrical. Absent : calf tenderness, cyanotic, pedal edema - Neurological Exam Neurological exam: Present: CN II-XII intact, oriented X3, no focal deficits. Absent: pronater drift, facial droop, speech deficit - Skin Skin exam: Present: dry, intact
--- NOTE | 2016-06-02 16:12 | Physician Discharge Referral ---
ExtendedCare Referral Info Transfer To: [facility] Provider in Charge after Transfer: Other - Diagnosis (1) Acute CHF Status: Acute (2) Acute encephalopathy Status: Acute (3) Acute on chronic respiratory failure with hypoxemia Status: Acute (4) Pneumonia Status: Acute (5) Atrial fibrillation Status: Chronic (6) Diabetes mellitus Status: Chronic (7) Osteoarthritis Status: Chronic (8) DVT prophylaxis Status: Acute - Transfer Medications Prescriptions: Levofloxacin [Levaquin] 750 mg PO Q48H #3 tablet Home Medications: Amiodarone [Cordarone] 200 mg PO QAM 05/27/16 [History] Aspirin Enteric Coated [Aspirin EC] 81 mg PO DAILY 05/27/16 [History] Atorvastatin [Lipitor] 40 mg PO HS 05/27/16 [History] GlipiZIDE [Glucotrol] 5 mg PO QAM 05/27/16 [History] Lisinopril 2.5 mg PO DAILY 05/27/16 [History] Metformin HCl [Glucophage] 1,500 mg PO QAM 05/27/16 [History] Metoprolol XL (24 HR) Succ [Toprol Xl] 25 mg PO DAILY 05/27/16 [History] Potassium Chloride [Klor-Con 10] 10 meq PO BID 05/27/16 [History] Tramadol HCl [Ultram] 50 mg PO Q6H PRN 05/27/16 [History] Furosemide [Lasix] 40 mg PO DAILY #0 06/02/16 [Rx] Levofloxacin [Levaquin] 750 mg PO Q48H #3 tablet 06/02/16 [Rx] Warfarin [Coumadin] 3 mg PO 1800 #0 06/02/16 [Rx] Allergies/Adverse Reactions: Allergies Penicillins Allergy (Verified 05/27/16 13:49) Rash - Respiratory Orders Oxygen / L per min (4) Smoking Cessation: Smoking cessation has been advised. For more information, call the [place] Tobacco Quit Line at 9-355-TQIJ-NOW. - Advance Directives Code Status: DNR-Arrest/Don't Intubate - Rehabiliation Orders Rehab Orders: Evaluation for Physical Therapy, Evaluation for Occupational Therapy - Diet Orders No Concentrated Sweets (Diabetes diet) CERTIFICATION: I certify that the transfer of the above named patient to an Extended Care Facility is necessary for the continuing treatment of the diagnosis listed. The above information is true and accurate reflection of patient's current condition. Confidential - Redisclosure prohibited without a patient's written consent.
[2016-06-02] MEDS ORDERED: *HR* Warfarin 2 MG TABLET PO ONE (18:00)
[2016-06-02] MEDS ORDERED: Insulin LISPRO 300 UNITS/3 ML VIAL SQ SCH (21:00)
== END 2016-06-02 19:30 | DRG 291 ==
LOC: EMEROO 13:46 → 2NENU 13:46 → SUATTDRO 17:50 → 2NENU 18:03
PROVIDERS: ADMIT Internal Medicine; ATTEND Internal Medicine